=== PATIENT | male | born 1930 | race Caucasian/White ===

== ENCOUNTER → 2016-04-19 | Outpatient (REF) | payer MEDICARE, OTHER ==
[~2016-04-19] MED LIST: /MAGN40TA PO; /TERBI25T PO; ACET-654 PO; BEN1.4DI TOP; CALC1TAB PO; CALC1TAB12 PO; CALC600T7 PO; CALCTAB54 PO; CALCTAB73 PO; CIPR500T89 PO; COUM6TAB PO; CYAN1000 PO; EUCECRE3 TOP; FERR325T3 PO; FLAG500T PO; FLORA SINUS; FURO20TA2 PO; FURO40TA2 PO; GABA100C PO; GABA300C3 PO; GABA600T PO; GLUC500T53 PO; IRON; LASI40TA PO; LEVO500T PO; LISI-542 PO; LISI2.5T3 PO; LISI5TAB PO; MAGN400T5 PO; MELA1CAP PO; METO12TA PO; POTA1TAB14 PO; PRIN5TAB PO; SENN8.6T7 PO; TYLE325T5 PO; VITA-122 PO; VITA500019 PO; VITA500C24 PO; VITA500T53 PO; VITACAP9 PO; WARF10TA15 PO; [UNRECOGNIZED DRUG - CODE] OU; [UNRECOGNIZED DRUG - OTHER]; [UNRECOGNIZED DRUG - OTHER]; [UNRECOGNIZED DRUG - OTHER]; [UNRECOGNIZED DRUG - OTHER] PO; kcl
[2016-04-19 08:45] LABS: BASO # 0.1 K/mm3 (0.0-0.2); BASO % 0.7 % (0.0-1.0); EOS # 0.1 K/mm3 (0.0-0.50); EOS % 0.8 % (0.0-3.0); LARGE UNSTAINED CELL # 0.1 K/mm3 (0.0-0.4); LYMPH # 1.4 K/mm3 (1.5-4.5); MEAN CORPUSCULAR HEMOGLOBIN 27.3 pg (27.0-33.0); MEAN CORPUSCULAR HGB CONC 32.3 g/dl (32.0-36.5); MEAN CORPUSCULAR VOLUME 84.6 fl (80.0-96.0); MONO # 1.1 K/mm3 (0.0-0.8); MONO % 10.2 % (0.0-5.0); NEUTROPHILS # 7.8 K/mm3 (1.8-7.7); NEUTROPHILS % 75.4 % (36.0-66.0); PLATELET COUNT, AUTOMATED 238 k/mm3 (150-450); RED CELL DISTRIBUTION WIDTH 14.5 % (11.5-14.5); WHITE BLOOD COUNT 10.3 K/mm3 (4.0-10.0)
[2016-04-19 09:17] LABS: ANION GAP 6 MEQ/L (8-16); BLOOD UREA NITROGEN 20 MG/DL (7-18); CALCIUM LEVEL 8.9 MG/DL (8.8-10.2); CARBON DIOXIDE LEVEL 31 MEQ/L (21-32); CHLORIDE LEVEL 102 MEQ/L (98-107); CREATININE FOR GFR 1.18 MG/DL (0.70-1.30); GLOMERULAR FILTRATION RATE > 60.0 (>35); GLUCOSE, FASTING 90 MG/DL (83-110); MAGNESIUM LEVEL 2.2 MG/DL (1.8-2.4); SODIUM LEVEL 139 MEQ/L (136-145)
== END ==
LOC: SKLAB6 07:00
PROVIDERS: ATTEND Family Medicine
DX: I48.2 Chronic atrial fibrillation (principal); G30.1 Alzheimer's disease with late onset; I50.40 Unspecified combined systolic (congestive) and diastolic (congestive) heart failure; I48.0 Paroxysmal atrial fibrillation; I10 Essential (primary) hypertension; D50.9 Iron deficiency anemia, unspecified

== ENCOUNTER → 2016-10-04 | Outpatient (REF) | payer MEDICARE, OTHER ==
[~2016-10-04] MED LIST changes: +ACET1TAB17 PO; +ASPI81CH PO; +BENCRE3 TOP; +CIPR-249 PO; +DULC10SU2 PR; +ENEM1ENE4 PR; +FEVE650S3 PR; +GABA-282 PO; -GABA300C3 PO; +GUAI100S7 PO; +METO1TAB87 PO; +METO25TA4 PO; +MILKSUS PO; +NITR4TASL SL; +VITA1CAP40 PO
[2016-10-04 08:19] LABS: MEAN CORPUSCULAR HEMOGLOBIN 27.9 pg (27.0-33.0); MEAN CORPUSCULAR HGB CONC 33.2 g/dl (32.0-36.5); MEAN CORPUSCULAR VOLUME 84.1 fl (80.0-96.0); RED CELL DISTRIBUTION WIDTH 14.5 % (11.5-14.5); WHITE BLOOD COUNT 15.7 K/mm3 (4.0-10.0)
--- NOTE | 2016-10-04 15:28 | REP ---
Portable chest, single AP view, the patient upright, and 53 p.m., 10/04/2016. There is chronic effacement right costophrenic angle, similar appearance to the comparison PA and lateral views dated 06/24/[address] dated 06/05/2015. This is nonspecific and could represent chronic pleural effusion, chronic pleural thickening or chronic pleural adhesions. Remainder of the right lung is clear. Left lung is clear. Cardiac size appears enlarged, unchanged. The giovanna, mediastinum, and bony thorax are unchanged. Impression: No acute cardiopulmonary findings. Chronic cardiomegaly and chronic effacement right costophrenic angle. Signed by James Liu MD 10/04/2016 03:19 P
--- NOTE | 2016-10-05 13:46 | ECGEPIP ---
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
== END ==
LOC: SKLAB4 06:45
PROVIDERS: ATTEND Family Medicine
DX: R07.9 Chest pain, unspecified (principal); I51.7 Cardiomegaly; I48.91 Unspecified atrial fibrillation

== ENCOUNTER → 2016-10-05 | Outpatient (REF) | payer MEDICARE, OTHER ==
[2016-10-05 07:51] LABS: CREATININE FOR GFR 1.28 MG/DL (0.70-1.30); GLOMERULAR FILTRATION RATE 56.5 (>35)
== END ==
LOC: SKLAB4 06:36
PROVIDERS: ATTEND Family Medicine
DX: N28.9 Disorder of kidney and ureter, unspecified (principal); I50.9 Heart failure, unspecified

== ENCOUNTER → 2016-10-22 | Outpatient (REF) | payer MEDICARE, OTHER ==
[2016-10-22 08:07] LABS: MEAN CORPUSCULAR HEMOGLOBIN 27.5 pg (27.0-33.0); MEAN CORPUSCULAR HGB CONC 32.4 g/dl (32.0-36.5); MEAN CORPUSCULAR VOLUME 85.1 fl (80.0-96.0); RED CELL DISTRIBUTION WIDTH 14.4 % (11.5-14.5); WHITE BLOOD COUNT 5.3 K/mm3 (4.0-10.0)
[2016-10-22 08:41] LABS: ANION GAP 6 MEQ/L (8-16); BLOOD UREA NITROGEN 17 MG/DL (7-18); CALCIUM LEVEL 8.6 MG/DL (8.8-10.2); CARBON DIOXIDE LEVEL 30 MEQ/L (21-32); CHLORIDE LEVEL 104 MEQ/L (98-107); GLOMERULAR FILTRATION RATE > 60.0 (>35); GLUCOSE, FASTING 90 MG/DL (83-110); MAGNESIUM LEVEL 2.5 MG/DL (1.8-2.4); POTASSIUM SERUM 4.2 MEQ/L (3.5-5.1); SODIUM LEVEL 140 MEQ/L (136-145)
== END ==
LOC: SKLAB4 09:48
PROVIDERS: ATTEND Family Medicine
DX: I50.9 Heart failure, unspecified (principal)

== ENCOUNTER → 2017-01-03 | Outpatient (REF) | payer MEDICARE, OTHER ==
--- NOTE | 2017-01-03 14:20 | REP ---
CHEST, TWO VIEWS: HISTORY: Right rib pain. COMPARISON: 10/04/2016. Increased density is present in the right lower lobe consistent with an infiltrate. A right pleural effusion is present that has increased in size compared to the previous study. The left lung is clear. The cardiac silhouette is enlarged. The pulmonary vasculature is normal in appearance. The bony structure is intact. IMPRESSION: 1. Right lower lobe infiltrate. 2. Right pleural effusion increased in size compared to the previous study. 3. Cardiomegaly. Signed by Lauri Su MD 01/03/2017 02:22 P
== END ==
LOC: SKLAB4 12:15
PROVIDERS: ATTEND Family Medicine
DX: R07.89 Other chest pain (principal); I51.7 Cardiomegaly; J90 Pleural effusion, not elsewhere classified

== ENCOUNTER → 2017-01-07 | Outpatient (REF) | payer MEDICARE, OTHER ==
[2017-01-07 10:28] LABS: ALBUMIN 2.6 GM/DL (3.2-5.2); ANION GAP 6 MEQ/L (8-16); BLOOD UREA NITROGEN 14 MG/DL (7-18); CALCIUM LEVEL 8.6 MG/DL (8.8-10.2); CARBON DIOXIDE LEVEL 31 MEQ/L (21-32); CHLORIDE LEVEL 103 MEQ/L (98-107); CREATININE FOR GFR 1.16 MG/DL (0.70-1.30); GLOMERULAR FILTRATION RATE > 60.0 (>35); GLUCOSE, FASTING 144 MG/DL (83-110); PHOSPHORUS LEVEL 3.4 MG/DL (2.5-4.9); POTASSIUM SERUM 4.1 MEQ/L (3.5-5.1); SODIUM LEVEL 140 MEQ/L (136-145)
== END ==
LOC: SKLAB4 08:00
PROVIDERS: ATTEND Family Medicine
DX: N18.9 Chronic kidney disease, unspecified (principal)

== ENCOUNTER → 2017-01-09 | Outpatient (CLI) | payer MEDICARE ==
[~2017-01-09] MED LIST changes: +ISOVUE-370 76% 100ML VIAL (Q9967) As Ordered ONE
--- NOTE | 2017-01-10 08:35 | REP ---
CT of the chest with IV contrast: Comparison is a plain film study dated 01/03/[address] without IV contrast dated 06/05/2015. There is a large right loculated pleural effusion similar appearance to the 01/03/2017 plain film study but increased in size from 06/05/2015 CT. There are question of a to masses adjacent to the loculated pleural fluid pleural effusion in the right lower lobe versus compression atelectasis of the lung versus combination. These measure 4.6 cm and 6.0 cm. There is a spiculated nodule in the medial basilar segment right lower lobe measuring 2.6 cm. Left lung is clear. There is an enlarged paratracheal mediastinal node measuring up to 13 mm short axis. There are borderline enlarged mediastinal aorticopulmonic window nodes. There are large subcarinal nodes measuring up to 16 mm short axis. There are enlarged nodes in the posterior mediastinum adjacent to the descending thoracic aorta measuring up to 15 mm short axis. No The thoracic aorta is unremarkable except that the descending thoracic aorta is tortuous. Cardiac size is enlarged. There is calcified atheroma in the coronary arteries. In the upper abdomen. There are multiple hepatic cysts. These were present previously. There is some of the cyst [place] containing calcification. This is unchanged. There is cyst at the upper poles of each kidney. The adrenals are unremarkable. Pancreas and spleen are unremarkable. Impression: Loculated right pleural effusion. Masses versus compression atelectasis versus combination along the medial border of the loculated pleural effusion in the right lower lobe. This Spiculated nodule in the medial basilar segment right lower lobe. Mediastinal adenopathy as described. There is no hilar or axillary adenopathy. Cardiomegaly. Hepatic and renal cysts. Signed by James Liu MD 01/10/2017 08:26 A
== END ==
LOC: M RAD 18:02
PROVIDERS: ATTEND Nurse Practitioner Adult Health
DX: R91.8 Other nonspecific abnormal finding of lung field (principal); R59.0 Localized enlarged lymph nodes; I51.7 Cardiomegaly; K76.89 Other specified diseases of liver; N28.1 Cyst of kidney, acquired; J90 Pleural effusion, not elsewhere classified
CPT/HCPCS: 71260; Q9967

== ENCOUNTER 2017-01-17 10:48 | Inpatient (IN) | payer MEDICARE ==
[~2017-01-17] VITALS: Ht 180.3 cm; Wt 91.0 kg
[~2017-01-17 10:48] MED LIST changes: -ACET1TAB17 PO; -ASPI81CH PO; -BENCRE3 TOP; -DULC10SU2 PR; -ENEM1ENE4 PR; -FEVE650S3 PR; -GUAI100S7 PO; -ISOVUE-370 76% 100ML VIAL (Q9967) As Ordered ONE; -METO1TAB87 PO; -METO25TA4 PO; -MILKSUS PO; -NITR4TASL SL; -VITA1CAP40 PO
[2017-01-17] MEDS ORDERED: NITROGLYCERIN 0.4 MG SUBL TABLET SL PRN (14:15)
--- NOTE | 2017-01-17 14:15 | HPE ---
DATE OF ADMISSION: 01/17/2017 CHIEF COMPLAINT: Increased right pleural effusion. HISTORY OF PRESENT ILLNESS: This is an 86-year-old gentleman who resides at [facility]. At the end of December, his friends reported to the staff that he seemed to be more short of breath on exertion and they had noted a fall, but it was questionable whether he had any rib cage injuries. He had x-rays done, which showed an increase in a chronic pleural effusion at the right base.. He was subsequently referred to Dr. Rashid Alcazar after obtaining a CT of the chest, which suggested that there might be pulmonary masses adjacent to the effusion. Dr. Alcazar would like this gentleman admitted to the family medicine service given his chronic medical problems to facilitate drainage of his effusion. In April 2014, Mr. Frankel was admitted to the hospital with pneumonia, was treated and discharged, but he returned to the hospital because of persistent symptoms and found to have increased fluid in the right chest. At that time, Dr. Alcazar consulted on him. He had drainage by radiology of what was felt to be a parapneumonic effusion and the cytology on his pleural fluid was negative at that time. PAST HISTORY: He was hospitalized 4 years ago because of GI bleeding. 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 He has tricuspid regurgitation and hypertension. He has chronic atrial fibrillation but is not anticoagulated due to his previous GI bleeding. He is felt to have gastroparesis, as well as peripheral neuropathy. He has had cataract surgery. His current medication regimen calls for him to receive: - metoprolol 25 mg twice daily - glucosamine 500 mg three times day - gabapentin 300 mg three times a day - furosemide 40 mg daily - vitamin D 50,000 units monthly - aspirin 81 mg daily - nitroglycerin 0.4 mg sublingually every 5 minutes as needed for chest pain - Eucerin lotion daily to his skin ALLERGIES: He has no known allergies. FAMILY HISTORY: He had two siblings. His sister lives in [place] and he is not conversant with her health status. Other sibling is . 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 He has not smoked for many years. He has not had alcohol in many years. He has never , has no children. 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 Prior to his last hospitalization and placement at [facility], he used to be a patient of [facility] in [place]. He has been under my care since May 2015. REVIEW OF SYSTEMS: There is no fevers, chills, sweats, weight loss. No headache or dizziness. No visual problems. No chest pains or palpitations. He denies cough, shortness breath, phlegm production or hemoptysis. Denies nausea, vomiting, abdominal pain, diarrhea or constipation. He does have some issues with chewing as he has a number of broken and non restorable teeth. He denies back pains or leg pains. He has some chronic swelling in his feet. He tends to sit up in a chair most of the time, although he is capable of ambulating. He does have some stasis changes of the skin of his lower extremities. He denies paresthesias, focal weakness. Denies anxiety or depression. Notes that his memory is not what it should be. He tends to be very methodical. He collects newspaper clippings and other pieces of information that he thinks might be useful for him at some future time. He sorts objects that he has collected and methodically arranges them. PHYSICAL EXAMINATION: On examination, his weight is 207, blood pressure 138/90, pulse 90 and irregular , respirations 16. He is alert, oriented, pleasant and cooperative, not in any distress. He is partially oriented to time, partially oriented to place. He is oriented to person. He is normocephalic. Extraocular movements are full. Pupils are equal, round, regular and react to light. There is no facial weakness. Mouth shows a number of non restorable teeth. Tongue is midline. Speech is clear. Throat is unremarkable. There is no neck masses, tenderness or adenopathy. There are no carotid bruit bruits. His lungs are clear but there are diminished breath sounds in the right base. Heart is irregular without any murmur, click or gallop. Abdomen is soft, nontender without any masses, organomegaly. Bowel sounds are active. Back is nontender. He does have trace edema of his feet and stasis discoloration of his shins but no inflammation. Cranial nerves III-XII within normal limits. Quality Assurance Monitor Body are symmetric. Deep tendon reflexes are diminished. Babinski signs are negative. LABORATORY DATA: Most recent lab studies show a glucose of 144, BUN of 14, creatinine 1.16, sodium 140, potassium 4.1. Findings of his chest CT were noted above. The chest x-ray report from 01/03 showed right lower lobe infiltrate, right pleural effusion increased in size from 10/04 and cardiomegaly. 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 We will hold his aspirin. He is not on any Coumadin or novel anticoagulant medication. He tends to be a rather pleasant, charming gentleman who has not had any behavior issues. Prior to his procedure, I think his medication should be held, although I would continue him on his beta-pascale so that his heart rate doesn't become increased. He has a Medical Orders for Life Sustaining Treatment (MOLST) form that indicates no resuscitation, no intubation , hospitalization if necessary, antibiotics as necessary. BENNIE
[2017-01-17] MEDS ORDERED: LIDOCAINE 1% MDV 20ML VIAL As Ordered ONE (15:33)
[2017-01-17 16:45] VITALS: BP 131/87
--- NOTE | 2017-01-17 16:50 | REP ---
Chest x-ray: Two views. History: Status post thoracentesis, pigtail catheter placement. Comparison study 01/03/2017. Findings: A pigtail drainage catheter is noted in the right posterolateral pleural space. There is some air adjacent to the catheter. Pleural thickening is again seen. Findings are otherwise unchanged. Impression: Right pleural drainage catheter placement. Signed by Jose Luis Wells MD 01/17/2017 05:13 P
--- NOTE | 2017-01-17 17:07 | REP ---
ULTRASOUND GUIDED RIGHT THORACENTESIS WITH CATHETER PLACEMENT: The procedure was performed under the direct supervision of Dr. Wells. The risks and benefits of the procedure were explained and informed consent was obtained by the healthcare proxy. The right pleural effusion was localized using ultrasound guidance. The skin was prepped and draped in a sterile fashion. 1% lidocaine was used as a local anesthetic. Using ultrasound guidance a #10-[place] skater APDL catheter was inserted using trocar technique. 40 mL of low viscosity red-colored fluid was withdrawn and sent to the lab. The catheter was connected to a Pleur-evac. The catheter was affixed to the skin and a sterile dressing was applied. The patient tolerated the procedure well and there were no immediate complications. Reviewed by KIERA Crump 01/21/2017 04:58 PEdited and Signed by Jose Luis Wells MD 01/28/2017 07:53 A
[2017-01-17 17:16] LABS: BASO % 0.5 % (0.0-1.0); EOS # 0.2 10^3/uL (0.0-0.50); EOS % 3.7 % (0.0-3.0); IMMATURE GRANULOCYTE % 0.8 % (0-0); LYMPH # 0.8 10^3/uL (1.5-4.5); LYMPH % 12.2 % (24.0-44.0); MEAN CORPUSCULAR HEMOGLOBIN 24.9 pg (27.0-33.0); MEAN CORPUSCULAR HGB CONC 30.2 g/dl (32.0-36.5); MEAN CORPUSCULAR VOLUME 82.5 fl (80.0-96.0); MONO # 0.8 10^3/uL (0.0-0.8); MONO % 12.2 % (0.0-5.0); NEUTROPHILS # 4.7 10^3/uL (1.8-7.7); NEUTROPHILS % 70.6 % (36.0-66.0); PLATELET COUNT, AUTOMATED 322 10^3/uL (150-450); RED CELL DISTRIBUTION WIDTH 14.4 % (11.5-14.5); WHITE BLOOD COUNT 6.6 10^3/uL (4.0-10.0)
[2017-01-17 17:23] LABS: LDH, BODY FLUID 527 U/L (NOT ESTABLISHED)
[2017-01-17 17:30] LABS: INR 1.08
[2017-01-17 17:43] LABS: ALBUMIN 2.6 GM/DL (3.2-5.2); ALBUMIN/GLOBULIN RATIO 0.72 (1.00-1.93); ALBUMIN/GLOBULIN RATIO 0.74 (1.00-1.93); ALKALINE PHOSPHATASE 126 U/L (45-117); ALKALINE PHOSPHATASE 127 U/L (45-117); ALT/SGPT 11 U/L (12-78); ANION GAP 5 MEQ/L (8-16); ANION GAP 6 MEQ/L (8-16); AST/SGOT 16 U/L (15-37); AST/SGOT 18 U/L (15-37); BILIRUBIN,TOTAL 0.8 MG/DL (0.2-1.0); BLOOD UREA NITROGEN 15 MG/DL (7-18); BLOOD UREA NITROGEN 16 MG/DL (7-18); CALCIUM LEVEL 8.3 MG/DL (8.8-10.2); CALCIUM LEVEL 8.6 MG/DL (8.8-10.2); CARBON DIOXIDE LEVEL 30 MEQ/L (21-32); CARBON DIOXIDE LEVEL 31 MEQ/L (21-32); CHLORIDE LEVEL 103 MEQ/L (98-107); CHOLESTEROL LEVEL 96 MG/DL (< 200); CREATININE FOR GFR 1.11 MG/DL (0.70-1.30); CREATININE FOR GFR 1.13 MG/DL (0.70-1.30); GLOMERULAR FILTRATION RATE > 60.0 (>35); GLUCOSE, FASTING 102 MG/DL (83-110); PHOSPHORUS LEVEL 3.8 MG/DL (2.5-4.9); POTASSIUM SERUM 4.3 MEQ/L (3.5-5.1); POTASSIUM SERUM 4.4 MEQ/L (3.5-5.1); SODIUM LEVEL 139 MEQ/L (136-145); TOTAL PROTEIN 6.1 GM/DL (6.4-8.2); TOTAL PROTEIN 6.2 GM/DL (6.4-8.2); TRIGLYCERIDES LEVEL 98 MG/DL (<150)
[2017-01-17] MEDS ORDERED: FURO40TA2 PO (18:28)
[2017-01-17] MEDS ORDERED: BENCRE3 TOP (18:28)
[2017-01-17] MEDS ORDERED: ASPI81CH PO (18:28)
[2017-01-17] MEDS ORDERED: METO1TAB87 PO (18:28)
[2017-01-17] MEDS ORDERED: VITA1CAP40 PO (18:28)
[2017-01-17] MEDS ORDERED: METO25TA4 PO (18:28)
[2017-01-17] MEDS ORDERED: MILKSUS PO (18:28)
[2017-01-17] MEDS ORDERED: NITR4TASL SL (18:28)
[2017-01-17] MEDS ORDERED: DULC10SU2 PR (18:28)
[2017-01-17] MEDS ORDERED: GUAI100S7 PO (18:28)
[2017-01-17] MEDS ORDERED: FEVE650S3 PR (18:28)
[2017-01-17] MEDS ORDERED: ACET1TAB17 PO ×2 (18:28)
[2017-01-17] MEDS ORDERED: ENEM1ENE4 PR (18:28)
[2017-01-17] MEDS: ACETAMINOPHEN TAB 650MG DOSE (2X325MG) PO PRN (18:48)
[2017-01-17 20:00] VITALS: BP 144/68
[2017-01-17] MEDS: GABAPENTIN 300 MG CAP PO SCH (20:41)
[2017-01-17] MEDS: SENOKOT S TAB PO SCH (20:42)
[2017-01-17] MEDS: METOPROLOL TART 25 MG TABLET PO SCH (20:42)
[2017-01-17] MEDS: PERCOCET 5MG/325MG TAB PO PRN (20:43)
[2017-01-17 23:59] VITALS: BP 104/63
[2017-01-18] MEDS: PERCOCET 5MG/325MG TAB PO PRN ×4 (02:59→20:57)
[2017-01-18 04:00] VITALS: BP 144/88
[2017-01-18 08:00] VITALS: BP 130/66
[2017-01-18] MEDS: SENOKOT S TAB PO SCH ×2 (08:39→20:57)
[2017-01-18] MEDS: GABAPENTIN 300 MG CAP PO SCH ×3 (08:39→20:58)
[2017-01-18] MEDS: FUROSEMIDE 40 MG TAB PO SCH (08:39)
[2017-01-18] MEDS: METOPROLOL TART 25 MG TABLET PO SCH ×2 (08:39→20:57)
--- NOTE | 2017-01-18 10:05 | IPNPDOC ---
Subjective Date Seen The patient was seen on 01/18/17. Subjective Chief Complaint/HPI The patient is a 86-year-old male admitted with a reason for visit of Pleural Effusion. Events since last encounter Pig tail catheter placed yesterday by Dr. Alcazar. Small amount of drainage noted. Patient denies c/o. Constitutional: Denies: Chills, Fever, Night Sweats Pulmonary: Denies: Dyspnea, Cough Cardiovascular: Denies: Chest Pain, Palpitations, Orthopnea, Paroxysmal Noc. Dyspnea, Lt Headedness Gastrointestinal: Denies: Nausea, Vomiting, Abdominal Pain, Diarrhea, Constipation Objective Physical Examination General Exam: Positive: Alert, No Acute Distress Neck Exam: Positive: Supple, Negative: JVD, thyromegaly Chest Exam: Positive: Diminished (RLL) Heart Exam: Positive: Rate Normal, Regular Rhythm, Normal S1, Normal S2, Negative: Murmurs, Rubs Extremity Exam: Positive: Normal pulses, Negative: Clubbing, Cyanosis, Edema Assessment /Plan Problems (1) Pleural effusion Status: Acute Problem Specific Plan: Consult Specialist, Monitor Clinically Problem Text: Dr. Alcazar managing. Monitor. CXR this am. labs ordered for today. (2) HTN (hypertension) Status: Chronic Response to Treatment: Stable Problem Specific Plan: Monitor Clinically (3) Gastroparesis Status: Chronic Response to Treatment: Stable Problem Specific Plan: Monitor Clinically (4) Systolic CHF Status: Chronic Response to Treatment: Stable Problem Specific Plan: Monitor Clinically (5) Afib Status: Chronic Problem Text: not anticoagulated due to hx of GI bleed. (6) Dementia Status: Chronic Plan/VTE VTE Prophylaxis Ordered?: No VTE Exclusion Pharmacological: Bleeding Risk (hx of GI bleed) VS, I&O, 24H, Fishbone Vital Signs/I&O Vital Signs Date Time Temp Pulse Resp B/P (MAP) Pulse Ox O2 Delivery O2 Flow Rate FiO2 01/18/17 08:39 88 130/66 01/18/17 08:39 18 01/18/17 08:00 97.6 97 Room Air I&O- Last 24 Hours up to 6 AM 01/19/17 06:00 Output Total 100 ml Balance -100 ml Laboratory Data 24H LABS Laboratory Tests 2 01/17/17 16:57: Immature Granulocyte % (Auto) 0.8H, White Blood Count 6.6, Red Blood Count 3.77L , Hemoglobin 9.4L, Hematocrit 31.1L, Mean Corpuscular Volume 82.5, Mean Corpuscular Hemoglobin 24.9L, Mean Corpuscular Hemoglobin Concent 30.2L, Red Cell Distribution Width 14.4, Platelet Count 322, Neutrophils (%) (Auto) 70.6H, Lymphocytes (%) (Auto) 12.2L, Monocytes (%) (Auto) 12.2H, Eosinophils (%) (Auto ) 3.7H, Basophils (%) (Auto) 0.5, Neutrophils # (Auto) 4.7, Lymphocytes # (Auto ) 0.8L, Monocytes # (Auto) 0.8, Eosinophils # (Auto) 0.2, Basophils # (Auto) 0.0 , Immature Granulocyte # (Auto) 0.1H, Nucleated Red Blood Cells % (auto) 0.0, Prothrombin Time 14.2, Prothromb Time International Ratio 1.08, Anion Gap 6L, Glomerular Filtration Rate > 60.0, Blood Urea Nitrogen 15, Creatinine 1.13, Sodium Level 139, Potassium Level 4.3, Chloride Level 103, Carbon Dioxide Level 30, Calcium Level 8.6L, Aspartate Amino Transf (AST/SGOT) 16, Alanine Aminotransferase (ALT/SGPT) 11L, Alkaline Phosphatase 127H, Total Bilirubin 0.8 , Total Protein 6.2L, Albumin 2.6L, Phosphorus Level 3.8, Lactate Dehydrogenase 205, Total Creatine Kinase 133, Triglycerides Level 98, Cholesterol Level 96, Albumin/Globulin Ratio 0.72L CBC/BMP Laboratory Tests 01/17/17 16:57 Red Blood Count 3.77 L, Mean Corpuscular Volume 82.5, Mean Corpuscular Hemoglobin 24.9 L, Mean Corpuscular Hemoglobin Concent 30.2 L, Red Cell Distribution Width 14.4, Neutrophils (%) (Auto) 70.6 H, Lymphocytes (%) (Auto) 12.2 L, Monocytes (%) (Auto) 12.2 H, Eosinophils (%) (Auto) 3.7 H, Basophils (% ) (Auto) 0.5, Neutrophils # (Auto) 4.7, Lymphocytes # (Auto) 0.8 L, Monocytes # (Auto) 0.8, Eosinophils # (Auto) 0.2, Basophils # (Auto) 0.0, Calcium Level 8.6 L, Aspartate Amino Transf (AST/SGOT) 16, Alanine Aminotransferase (ALT/SGPT) 11 L, Alkaline Phosphatase 127 H, Total Bilirubin 0.8, Total Protein 6.2 L, Albumin 2.6 L, Phosphorus Level 3.8, Lactate Dehydrogenase 205, Total Creatine Kinase 133, Triglycerides Level 98, Cholesterol Level 96 Microbiology Microbiology 01/17/17 Acid Fast Stain, Received Pending 01/17/17 Mycobacterial Culture, Received Pending 01/17/17 Fungal Smear, Received Pending 01/17/17 Fungal Culture, Received Pending 01/17/17 Gram Stain - Final, Resulted 01/17/17 Body Fluid Culture, Resulted Pending 01/17/17 Anaerobic Culture, Resulted Pending Amber Clifford [facility] Jan 18, 2017 10:05
--- NOTE | 2017-01-18 10:29 | REP ---
CHEST, TWO VIEWS: HISTORY: Pleural effusion. COMPARISON: 01/17/2017. Increased density is present in the right lower lobe consistent with atelectasis or infiltrate that has increased compared to the previous study. A right pleural effusion is present unchanged compared to the previous study. The left lung is clear. The cardiac silhouette is enlarged. The pulmonary vasculature is normal in appearance. A catheter is present in the right hemithorax. There is no pneumothorax. IMPRESSION: 1. Right lower lobe atelectasis or infiltrate increased compared to the previous study. 2. Right pleural effusion unchanged compared to the previous study. A catheter is present in the right hemithorax. Signed by Lauri Su MD 01/18/2017 10:33 A
[2017-01-18 11:00] LABS: BASO % 0.3 % (0.0-1.0); EOS # 0.2 10^3/uL (0.0-0.50); EOS % 2.6 % (0.0-3.0); IMMATURE GRANULOCYTE % 0.6 % (0-0); LYMPH # 0.7 10^3/uL (1.5-4.5); LYMPH % 10.5 % (24.0-44.0); MEAN CORPUSCULAR HEMOGLOBIN 25.1 pg (27.0-33.0); MEAN CORPUSCULAR HGB CONC 30.7 g/dl (32.0-36.5); MEAN CORPUSCULAR VOLUME 81.8 fl (80.0-96.0); MONO # 0.7 10^3/uL (0.0-0.8); MONO % 10.2 % (0.0-5.0); NEUTROPHILS # 5.2 10^3/uL (1.8-7.7); NEUTROPHILS % 75.8 % (36.0-66.0); PLATELET COUNT, AUTOMATED 309 10^3/uL (150-450); RED CELL DISTRIBUTION WIDTH 14.4 % (11.5-14.5); WHITE BLOOD COUNT 6.9 10^3/uL (4.0-10.0)
[2017-01-18] MEDS ORDERED: ALTEPLASE 2 MG/2 ML VIAL (J2997 PER 1MG) XX ONE (11:30)
[2017-01-18 11:49] LABS: ALBUMIN 2.6 GM/DL (3.2-5.2); ALBUMIN/GLOBULIN RATIO 0.72 (1.00-1.93); ALKALINE PHOSPHATASE 128 U/L (45-117); ALT/SGPT 11 U/L (12-78); ANION GAP 5 MEQ/L (8-16); AST/SGOT 13 U/L (15-37); BLOOD UREA NITROGEN 15 MG/DL (7-18); CALCIUM LEVEL 8.4 MG/DL (8.8-10.2); CARBON DIOXIDE LEVEL 31 MEQ/L (21-32); CHLORIDE LEVEL 102 MEQ/L (98-107); CREATININE FOR GFR 1.12 MG/DL (0.70-1.30); GLOMERULAR FILTRATION RATE > 60.0 (>35); GLUCOSE, FASTING 141 MG/DL (83-110); POTASSIUM SERUM 4.5 MEQ/L (3.5-5.1); SODIUM LEVEL 138 MEQ/L (136-145); TOTAL PROTEIN 6.2 GM/DL (6.4-8.2)
[2017-01-18 12:00] VITALS: BP 120/63
--- NOTE | 2017-01-18 14:13 | IPN ---
DATE: 01/18/2017 Mr. Frankel had a pigtail catheter placed yesterday with only 40 mL coming out. He still has a significant pleural effusion. I am, therefore, going to undertake a tissue plasminogen activator (tPA) pleurolysis. His vital signs show a maximum temperature (Tmax) of 98.3 with a heart rate that ranges between 88 and 72 in atrial fibrillation with a respiratory rate of 18-20 without the use of accessory muscles. He was 97% saturated on room air. His blood pressures ranging between 130/66 to 144/88. His intake and output for the past 24 hours were recorded at 420 in and 570 out for a negativity of 150 mL. He has put 45 mL total out the pigtail catheter. Weight today is 93.1 kg compared to 92.5 kg yesterday. PHYSICAL EXAMINATION: He has decreased breath sounds in the right lower hemithorax and a dull percussion note. I hear no wheezes, rhonchi, or rales, however. Percussion notes are full to the diaphragm on the left side. CARDIAC EXAM: Without murmurs, clicks, gallops, rubs. I cannot feel his point of maximum impulse (PMI). S1, S2 are normal. ABDOMEN: Is soft, nontender. Bowel sounds are positive. There is no hepatomegaly. No costovertebral angle (CVA) tenderness. EXTREMITIES: Show no pretibial edema. No calf tenderness. No differential swelling in the upper extremities. SKIN: Is warm, dry, and perfused without cyanosis or mottling, including that of the nailbeds and knees. NECK: Is supple. There is no jugular venous distention. No subcutaneous emphysema. Trachea is midline. Mouth shows his mucous membranes to be pink and moist. Lips and commissures without lesions. There is no thrush. Eyes show his pupils to be equal and reactive. Extraocular motions intact. Sclerae anicteric. NEUROLOGICAL: Shows II through XII intact along with gross motor and gross sensation intact. Gait is not tested. PSYCHIATRIC: Shows him to be pleasantly confused but quite cooperative. His white count today is 6.0 with hemoglobin and hematocrit of 9.4 and 30.6. Platelet count is 309. His differential shows 35% neutrophils, 10% lymphocytes, 10% monocytes. There are no immature forms. No toxic granulations. His chemistries are still pending. Fluid analysis yesterday showed the pleural fluid to have a pH of 7.47 with a glucose of 57, a corresponding glucose of 102 in the serum. The LDH was 527 with a corresponding LDH pf 205 in the serum. There is no cell count recorded. This looks to be an exudative hypoglycemic effusion. Microbiology did not show any organisms on gram stain. Pathology is still pending. His chest x-ray today shows a pleural effusion on the right side looking linear and loculated. The pigtail catheter is in good place. It is notable that I do not see a lot of opacity posteriorly on the lateral chest x-ray. On the AP x-ray, there is considerable opacity in the right lower hemithorax in a triangular and linear fashion. IMPRESSION: 1. Recurrent pleural effusion, unknown origin, exudative and hypoglycemic, possibly parapneumonic. 2. Systolic heart failure with ejection fraction of 45%. 3. Severe tricuspid regurgitation. 4. Right and left atrial enlargement. 5. Atrial fibrillation. 6. Hypertension. 7. Gastroparesis. PLAN AND DISCUSSION: I will undertake a tissue plasminogen activator (tPA) pleurolysis on him today. I am not sure how much more we are going to get out. Tomorrow, I will undertake a CT of his chest to see how successful we have been.
[2017-01-18 16:00] VITALS: BP 115/66
--- NOTE | 2017-01-18 20:02 | RO ---
DATE OF PROCEDURE: 01/18/2017 PREPROCEDURE DIAGNOSES: Loculated pleural effusion. POSTPROCEDURE DIAGNOSES: Loculated pleural effusion. OPERATIVE PROCEDURE: TPA pleurolysis procedure. SURGEON: Rashid Alcazar MD SANDBLAST OR SHOTBLAST EQUIPMENT TENDER: ANESTHESIA: DESCRIPTION OF PROCEDURE: The patient's chest tube catheter was prepped and draped in the usual sterile fashion. 6 mg of TPA and 50 mL of normal saline was injected into the pleural space. Catheter was clamped and the patient was turned from side to side then instructed to sit in a chair. Chest catheter will be unclamped in 4 hours and returned to suction.
[2017-01-18 20:20] VITALS: BP 119/64
[2017-01-19 00:20] VITALS: BP 101/64
[2017-01-19 05:22] VITALS: BP 119/74
[2017-01-19] MEDS: PERCOCET 5MG/325MG TAB PO PRN (06:14)
[2017-01-19 08:00] VITALS: BP 104/57
[2017-01-19] MEDS: SENOKOT S TAB PO SCH ×2 (10:09→20:07)
[2017-01-19] MEDS: FUROSEMIDE 40 MG TAB PO SCH (10:09)
[2017-01-19] MEDS: GABAPENTIN 300 MG CAP PO SCH ×3 (10:11→20:07)
[2017-01-19] MEDS: METOPROLOL TART 25 MG TABLET PO SCH ×2 (10:11→20:07)
--- NOTE | 2017-01-19 10:15 | REP ---
Chest x-ray: Two views. History: Pleural effusion. Comparison study: January 18, 2017. Findings: The right posterolateral pigtail catheter remains in place. There is some air and pleural fluid adjacent. Soft tissue emphysema is seen outside the rib cage at this level. No new infiltrate is seen. Left lung remains clear. Signed by Jose Luis Wells MD 01/19/2017 02:15 P
[2017-01-19 12:00] VITALS: BP 119/74
[2017-01-19 12:33] LABS: MEAN CORPUSCULAR HGB CONC 30.5 g/dl (32.0-36.5); RED CELL DISTRIBUTION WIDTH 14.6 % (11.5-14.5); WHITE BLOOD COUNT 9.4 10^3/uL (4.0-10.0)
--- NOTE | 2017-01-19 12:46 | REP ---
CT chest without contrast: History: Pleural effusion after TPA. Comparison study January 09, 2017. Findings: A right percutaneously placed pigtail catheter is seen in the right posterolateral pleural space with some surrounding pleural air. There is some soft tissue emphysema adjacent to this tube insertion site. There is loculated pleural fluid anterior and superior to the tube insertion however this contains visible and fairly extensive septations versus nodularity. There is visceral and parietal pleural thickening which is considerable. There are atelectatic changes in the remaining right lung. There is a fracture of the lateral aspect of the right 9th rib. Impression: Multiple septations seen in the remaining pleural fluid process. Loculations. Visceral and parietal pleural thickening. Right-sided lateral 9th rib fracture. Signed by Jose Luis Wells MD 01/19/2017 02:19 P
[2017-01-19 13:15] LABS: ANION GAP 6 MEQ/L (8-16); BLOOD UREA NITROGEN 18 MG/DL (7-18); CALCIUM LEVEL 8.5 MG/DL (8.8-10.2); CARBON DIOXIDE LEVEL 32 MEQ/L (21-32); CHLORIDE LEVEL 98 MEQ/L (98-107); CREATININE FOR GFR 1.18 MG/DL (0.70-1.30); GLOMERULAR FILTRATION RATE > 60.0 (>35); GLUCOSE, FASTING 123 MG/DL (83-110); POTASSIUM SERUM 4.4 MEQ/L (3.5-5.1); SODIUM LEVEL 136 MEQ/L (136-145)
[2017-01-19] MEDS ORDERED: MOM 30ML SUSPENSION UDC PO PRN (14:15)
--- NOTE | 2017-01-19 14:43 | IPN ---
DATE: 01/19/2017 Mr. Frankel is sitting up comfortably in a chair. He is not complaining of pain nor is he complaining of shortness of breath. His vital signs show a maximum temperature (Tmax) of 99.6 with a heart rate that ranges between 78 and 100 in atrial fibrillation with a respiratory rate of 18 to 17 without the use of accessory muscles and who is 94% to 100% saturated on room air and whose blood pressure is ranging between 104/57 to 119/74. His intake and output for the past 24 hours has been recorded as 1240 in and 1370 out for a negativity of 130 mL. He has put 80 mL from the chest tube catheter and 50 mL this morning. His weight today is 92.4 kg compared to 93.1 kg yesterday. On physical examination, his lungs show decreased breath sounds in the right hemithorax. I hear no wheezes, rhonchi or rales however. Percussion note is dull towards the base of the left hemithorax. Right lung shows percussion note is full to the diaphragm. I do not detect wheezes, rhonchi or rales. Cardiac exam shows an irregular rate and rhythm. I cannot feel his point of maximum impulse (PMI). S1, S2 are normal. There are no murmurs, clicks, gallops or rubs. Abdomen is soft, nontender, but tympanitic and slightly distended. Bowel sounds are positive. There is no hepatomegaly. No costovertebral angle (CVA) tenderness. Extremities show trace pretibial edema. No calf tenderness. No differential swelling in the upper extremities. Skin is warm, dry, and perfused without cyanosis or mottling, including that of the nail beds and knees. Neck is supple. There is no jugular venous distention. No subcutaneous emphysema. Trachea is midline. Mouth shows his mucous membranes to be pink and moist. Lips and commissures without lesions. There is no thrush. Eyes show his pupils to be equal and reactive. Extraocular motions intact. Sclerae anicteric. Neurologic shows II through XII intact along with gross motor and gross sensation intact. Gait is not tested. Psychiatric shows him to be pleasantly confused and talkative. His white count today is 9.4 with hemoglobin and hematocrit of 10.7 and 35.1, slightly up from yesterdays of 9.4 and 30.6. Platelet count is 363. Chemistries today show normal electrolytes with a BUN and creatinine of 18 and 1.18, a glucose of 123 and a calcium of 8.5. I discussed his pleural fluid yesterday, looking exudative and hypoglycemic. It was however clotted and therefore cell count was not undertaken. His chest x-ray today still shows an opacity on the right lateral hemithorax. Compared to yesterday, there seems to be more lucency at the right costophrenic angle. I see no other infiltrates. He did undergo a tPA pleurolysis yesterday. I therefore obtained a CT scan of his chest without contrast today. It shows the catheter to be in good position. The lower portion of the chest has been drained; however, there is still an organized loculation on the lateral chest wall. There is underlying compression. The previously noted masses are still there, but again looked to be consolidated compressed lung rather than malignant masses. His cardiac chambers are massively dilated, particularly the right atrium. It is notable I do not hear a murmur of tricuspid regurgitation. There is a very small sliver of a left pleural effusion. IMPRESSION: 1. Loculated pleural effusion, right side, partially drained. 2. Systolic heart failure with ejection fraction of 45%. 3. Severe tricuspid regurgitation. 4. Right and left atrial enlargement. 5. Atrial fibrillation. 6. Hypertension. 7. Gastroparesis. PLAN AND DISCUSSION: The chest catheter is draining very little. I am therefore going to remove it. I think that we should be content with him continuing his loculated effusion. It would not be unreasonable to follow this along with periodic chest x-rays. It looks as though there is some organization within the remaining pleural effusion. If it does get larger, I will once again have x-ray place a pleural catheter and try another tPA pleurolysis. For the time being though he is asymptomatic and I will let it be.
--- NOTE | 2017-01-19 15:38 | IPN ---
DATE: 01/19/2017 SUBJECTIVE: Mr. Frankel is seen today in the progressive care unit (PCU). At this time his chest tube has been removed. Cytology from the pleural fluid just shows blood and blood elements. No malignant cells. He is not complaining of any chest pains or palpitations. He has a little cough now and then, no shortness of breath, no abdominal pains. No leg pain, not having any swelling. He is currently sitting up in bed. He is making geometric drawings and coloring them in. He is currently getting furosemide, Senokot-S, gabapentin, metoprolol, and as-needed medication for pain, I recently put in an order for milk of magnesia as he has not moved his bowels since he has been here. OBJECTIVE: On examination, his temperature is 99.6, blood pressure of 119.74, pulse 100 and irregular, respirations 18. He is alert, pleasant and cooperative, not in any distress. His eyes are clear, There are no neck masses, tenderness or adenopathy. No carotid bruits. His jugulars I think are a little bit full. He has diminished breath sounds at the right base. No rales, wheezes or rhonchi. Heart is irregular without any murmur, click or gallop. Abdomen is soft and nontender without any masses or organomegaly. There is no edema. LABORATORY DATA: His white count is 9400. Hemoglobin 10.7 which is better than yesterday. Glucose was 123, BUN 18, creatinine 1.8. IMAGING: We reviewed his chest x-ray. ASSESSMENT: 1. Loculated pleural effusion on the right. 2. Systolic heart failure controlled. 3. Tricuspid regurgitation stable. 4. Atrial fibrillation controlled. 5. Hypertension controlled. 6. Gastroparesis, stable. 7. Dementia. PLAN: Resident will continue on his current medication regimen. No changes are made today. Certainly does not appear to have any cause for the increase in or recurrence of the pleural fusion. I am assuming that the patient will return back to the longterm tomorrow or the next day depending upon the availability of the staff and longterm to do his readmission. BENNIE
[2017-01-19 16:00] VITALS: BP 129/74
[2017-01-19 20:00] VITALS: BP 128/71
[2017-01-20 00:20] VITALS: BP 121/67
[2017-01-20] MEDS: PERCOCET 5MG/325MG TAB PO PRN (00:37)
[2017-01-20 04:00] VITALS: BP 130/74
[2017-01-20 08:00] VITALS: BP 112/70
[2017-01-20] MEDS: METOPROLOL TART 25 MG TABLET PO SCH ×2 (08:56→21:55)
[2017-01-20] MEDS: FUROSEMIDE 40 MG TAB PO SCH (08:56)
[2017-01-20] MEDS: SENOKOT S TAB PO SCH ×2 (08:56→22:02)
[2017-01-20] MEDS: GABAPENTIN 300 MG CAP PO SCH ×3 (08:56→21:55)
[2017-01-20] MEDS: ACETAMINOPHEN TAB 650MG DOSE (2X325MG) PO PRN (09:15)
--- NOTE | 2017-01-20 11:30 | REP ---
Chest x-ray: Two views. History: Pleural effusion. Comparison study: January 19, 2017. Findings: The previously noted pleural drainage catheter has been removed. A small quantity of air and fluid remain in the right pleural space. Pleural thickening is again noted unchanged. Mild cardiomegaly is observed. The left lung remains clear. Signed by Jose Luis Wells MD 01/20/2017 09:38 A
[2017-01-20 12:00] VITALS: BP 107/58
--- NOTE | 2017-01-20 15:32 | DSES ---
DATE OF ADMISSION: 01/17/2017 DATE OF DISCHARGE: 01/20/2017 Mr. Frankel is an 86-year-old gentleman found recently to have increase in a chronic right pleural effusion which had first been noted several years ago and felt to be a parapneumonic effusion. However, he had recently been short of breath. He had a CT that was worrisome for some nodularity of the lung adjacent to the effusion. He was seen by Dr. Rashid Alcazar who recommended a hospital admission for chest tube insertion for both diagnostic and therapeutic reasons. He had a past history of atrial fibrillation, gastrointestinal (GI) bleeding, dementia, pneumonia 20 months ago. Medications prior to admission included metoprolol, glucosamine, gabapentin, furosemide, vitamin D, aspirin, as needed nitroglycerin, Eucerin lotion. His examination showed blood pressure to be 138/90, pulse 90 and irregular, respirations 16. His weight was 207. He was alert, partially oriented to time, partially oriented to place. Not in any distress. He had a number of non-restorable teeth. Tongue was midline. Speech was clear. Lungs showed diminished breath sounds at the right base. Heart was irregular without any murmur, click or gallop. He had trace edema of his feet and stasis discoloration in his shins. Laboratory data showed hemoglobin initially 9.4, subsequently 10.7, and white count ranged between 2791-7213, respectively. His BUN ranged from 15-18. Creatinine ranged from 1.11 to 1.18. Potassium ranged from 4.3 to 4.5. Glucose ranged from 102-123. Albumin was 2.6. Pleural fluid chemistries showed glucose of 57, protein of 3, albumin 1.2, LDH 527, amylase 25. Cholesterol less than 50, triglycerides 40. Appearance was red and clotted. Cultures were negative. Pathology showed mainly blood and blood elements negative for malignancy. Imaging showed multiple chest x-rays showing right lower lobe atelectasis and infiltrate. Chest CT showed multiple septations in the pleural fluid, loculations, visceral and parietal pleural thickening, it read a right-sided lateral left rib fracture which is not apparent on his plain films. Atelectatic changes were seen in the residual right lung. The patient was admitted to the hospital on the family medicine service. He was kept on his usual medications including furosemide, Senokot-S, gabapentin, metoprolol. He was afforded oxycodone for pain. He did not have any fevers or require any antibiotics. He did have a pigtail catheter placed that was subsequently removed, it really did not drain too much after its initial output. He underwent TPA irrigation of the effusion as well. Catheter was removed on 01/19/2017, by Dr. Alcazar, he tolerated this well. No pneumothorax was identified. He had a followup x-ray that was negative. 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 The areas that had previously been identified as possible tumor were felt by the thoracic surgeon to be consolidated lung tissue. From the point of view of the homemaking rehabilitation consultant, he was ready to return to the senior living. He was seen on the morning of 01/20/2017, at which time his temperature was 99.1, pulse was 99, respirations 18, blood pressure was 112/70, oxygen saturation on room air 94%. He was alert, pleasant, and cooperative, not in any distress. His lungs showed diminished breath sounds at the right base. Heart had an irregular rhythm without any murmur, click or gallop. Abdomen was soft and nontender. There was trace edema only on the tops of his feet. He is to resume his previous medication regimen at the senior living which includes furosemide 40 mg daily, Senokot-S twice a day, gabapentin 300 mg three times a day, metoprolol 25 mg twice a day as needed medications for pain and for chest pain, as needed medications for skin care. At the time of this dictation it was unclear whether the senior living would be able to take him back that day due to some issues regarding his need to be re-registered in their data base. He will be followed by me at [facility] and Dr. Alcazar recommended a followup chest x-ray in 10 days with report to be forwarded to him. [facility]USPasc[facility]
[2017-01-20 16:00] VITALS: BP 148/72
[2017-01-20 20:02] VITALS: BP 129/72
[2017-01-21 00:37] VITALS: BP 119/58
[2017-01-21 04:54] VITALS: BP 113/68
[2017-01-21 08:00] VITALS: BP 120/57
[2017-01-21 08:59] VITALS: BP 120/57
[2017-01-21] MEDS: METOPROLOL TART 25 MG TABLET PO SCH (08:59)
[2017-01-21] MEDS: SENOKOT S TAB PO SCH (08:59)
[2017-01-21] MEDS: FUROSEMIDE 40 MG TAB PO SCH (09:00)
[2017-01-21] MEDS: GABAPENTIN 300 MG CAP PO SCH (09:00)
--- NOTE | 2017-01-21 10:44 | DSES ---
DATE OF ADMISSION: 01/18/2017 DATE OF DISCHARGE: 01/21/2017 ADDENDUM: 01/21/2017 Patient has had no changes to his medical hospital course since the discharge summary by Dr. Oates was dictated. His discharge diagnoses include: 1. Loculated pleural effusion on the right. 2. Systolic congestive heart failure. 3. Atrial fibrillation. 4. Hypertension. 5. Gastroparesis. 6. Dementia. His discharge medications include: - acetaminophen 650 mg by mouth three times a day as well as every 4 hours as needed by mouth or per rectum - aspirin 81 mg daily - Bengay topically every 2 hours as needed - Dulcolax 10 mg per rectum daily as needed for constipation - enema daily as needed for constipation - vitamin D 50,000 units weekly - furosemide 40 mg daily - gabapentin 300 mg three times a day - glucosamine 500 mg three times a day - guaifenesin 100 mg per 5 mL, 20 mL every 6 hours as needed for cough - metoprolol 25 mg by mouth twice a day, 12.5 mg twice a day as needed for heart rate great than 120 - Milk of Magnesia 30 mL by mouth daily as needed for constipation - nitroglycerin 0.4 mg sublingually as needed for chest pain Discharge plan will be to followup with Dr. Oates. Activity should be as tolerated. Diet should be no added salt. edited: 01/22/2017 1401 tkf MTDD
--- NOTE | 2017-01-21 11:07 | REP ---
CHEST, TWO VIEWS: Two views of the chest are performed and compared a prior study of 01/20/2017. Right pleural fluid collection is again seen unchanged with a small amount of loculated pleural air inferiorly. The left lung remains clear. The heart is enlarged and the mediastinal silhouette is unchanged. IMPRESSION: Stable exam. Signed by James Johnson MD 01/22/2017 07:50 P
== END 2017-01-21 12:13 | DRG 187 ==
LOC: M PCU 16:30 → OBSVTOIN 01-18 11:44
PROVIDERS: ADMIT Family Medicine; ATTEND Family Medicine
PROC: 0W9930Z Drainage of Right Pleural Cavity with Drainage Device, Percutaneous Approach (ICD-10-PCS; principal; 2017-01-17)
PROC: 3E0L3GC Introduction of Other Therapeutic Substance into Pleural Cavity, Percutaneous Approach (ICD-10-PCS; 2017-01-18)
DX: J90 Pleural effusion, not elsewhere classified (principal); I50.22 Chronic systolic (congestive) heart failure; F03.90 Unspecified dementia, unspecified severity, without behavioral disturbance, psychotic disturbance, mood disturbance, and anxiety; I11.0 Hypertensive heart disease with heart failure; K31.84 Gastroparesis; I48.2 Chronic atrial fibrillation; G62.9 Polyneuropathy, unspecified; Z98.49 Cataract extraction status, unspecified eye; Z79.82 Long term (current) use of aspirin; Z79.899 Other long term (current) drug therapy

== ENCOUNTER → 2017-04-22 | Outpatient (REF) | payer MEDICARE ==
[2017-04-22 10:12] LABS: HEMATOCRIT 35.7 % (42.0-52.0); HEMOGLOBIN 10.5 g/dl (14.0-18.0); MEAN CORPUSCULAR HEMOGLOBIN 23.6 pg (27.0-33.0); MEAN CORPUSCULAR HGB CONC 29.4 g/dl (32.0-36.5); MEAN CORPUSCULAR VOLUME 80.2 fl (80.0-96.0); PLATELET COUNT, AUTOMATED 300 10^3/uL (150-450); RED BLOOD COUNT 4.45 10^6/uL (4.30-6.10); RED CELL DISTRIBUTION WIDTH 17.4 % (11.5-14.5); WHITE BLOOD COUNT 6.9 10^3/uL (4.0-10.0)
[2017-04-22 10:41] LABS: ANION GAP 8 MEQ/L (8-16); BLOOD UREA NITROGEN 13 MG/DL (7-18); CALCIUM LEVEL 8.7 MG/DL (8.8-10.2); CARBON DIOXIDE LEVEL 30 MEQ/L (21-32); CHLORIDE LEVEL 103 MEQ/L (98-107); CREATININE FOR GFR 1.13 MG/DL (0.70-1.30); GLOMERULAR FILTRATION RATE > 60.0 (>35); GLUCOSE, FASTING 115 MG/DL (83-110); POTASSIUM SERUM 4.2 MEQ/L (3.5-5.1); SODIUM LEVEL 141 MEQ/L (136-145)
== END ==
LOC: SKLAB4 12:18
DX: N18.9 Chronic kidney disease, unspecified (principal)
CPT/HCPCS: 36415

== ENCOUNTER → 2017-09-17 | Outpatient (REF) | payer MEDICARE, MEDICAID, OTHER ==
[2017-09-17 13:16] LABS: HEMATOCRIT 37.8 % (42.0-52.0); HEMOGLOBIN 11.5 g/dl (13.5-17.5); MEAN CORPUSCULAR HEMOGLOBIN 26.4 pg (27.0-33.0); MEAN CORPUSCULAR HGB CONC 30.4 g/dl (32.0-36.5); MEAN CORPUSCULAR VOLUME 86.9 fl (80.0-96.0); PLATELET COUNT, AUTOMATED 285 10^3/uL (150-450); RED BLOOD COUNT 4.35 10^6/uL (4.30-6.10); RED CELL DISTRIBUTION WIDTH 14.9 % (11.5-14.5); WHITE BLOOD COUNT 6.4 10^3/uL (4.0-10.0)
[2017-09-17 13:41] LABS: ALBUMIN 2.9 GM/DL (3.2-5.2); ALBUMIN/GLOBULIN RATIO 0.81 (1.00-1.93); ALKALINE PHOSPHATASE 121 U/L (45-117); ALT/SGPT 13 U/L (12-78); ANION GAP 6 MEQ/L (8-16); AST/SGOT 17 U/L (7-37); BILIRUBIN,TOTAL 0.8 MG/DL (0.2-1.0); BLOOD UREA NITROGEN 13 MG/DL (7-18); CALCIUM LEVEL 8.6 MG/DL (8.8-10.2); CARBON DIOXIDE LEVEL 29 MEQ/L (21-32); CHLORIDE LEVEL 107 MEQ/L (98-107); CREATININE FOR GFR 1.13 MG/DL (0.70-1.30); GLOMERULAR FILTRATION RATE > 60.0 (>35); GLUCOSE, FASTING 125 MG/DL (70-100); POTASSIUM SERUM 4.5 MEQ/L (3.5-5.1); SODIUM LEVEL 142 MEQ/L (136-145); TOTAL PROTEIN 6.5 GM/DL (6.4-8.2)
== END ==
LOC: SKLAB4 12:38
DX: R60.0 Localized edema (principal)

== ENCOUNTER → 2017-09-17 | Outpatient (CLI) | payer MEDICARE, MEDICAID, OTHER | LOC: M RAD 15:34 | DX: R60.0 Localized edema (principal) | CPT/HCPCS: 93971 ==

== ENCOUNTER → 2017-09-23 | Outpatient (REF) | payer MEDICARE, MEDICAID, OTHER ==
[2017-09-23 10:19] LABS: TOTAL 25(OH) VITAMIN D 43.2 NG/ML (30.0-100.0)
[2017-09-23 10:33] LABS: MAGNESIUM LEVEL 2.2 MG/DL (1.8-2.4)
[2017-09-23 10:33] LABS: IRON (FE) 50 UG/DL (65-175); PERCENT SATURATION 15.2 % (19.7-50.0); TOTAL IRON BINDING CAPACITY 328 UG/DL (250-450)
== END ==
LOC: SKLAB4 09:44
DX: D64.9 Anemia, unspecified (principal); F03.90 Unspecified dementia, unspecified severity, without behavioral disturbance, psychotic disturbance, mood disturbance, and anxiety; N18.9 Chronic kidney disease, unspecified
CPT/HCPCS: 83550

== ENCOUNTER → 2017-10-03 | Outpatient (REF) | payer MEDICARE, MEDICAID, OTHER ==
[2017-10-03 08:17] LABS: ANION GAP 8 MEQ/L (8-16); BLOOD UREA NITROGEN 14 MG/DL (7-18); CALCIUM LEVEL 8.1 MG/DL (8.8-10.2); CARBON DIOXIDE LEVEL 30 MEQ/L (21-32); CHLORIDE LEVEL 106 MEQ/L (98-107); CREATININE FOR GFR 1.05 MG/DL (0.70-1.30); GLOMERULAR FILTRATION RATE > 60.0 (>35); GLUCOSE, FASTING 94 MG/DL (70-100); POTASSIUM SERUM 3.8 MEQ/L (3.5-5.1); SODIUM LEVEL 144 MEQ/L (136-145)
== END ==
LOC: SKLAB4 10:45
DX: I50.9 Heart failure, unspecified (principal)
CPT/HCPCS: 36415

== ENCOUNTER → 2017-10-10 | Outpatient (REF) | payer MEDICARE, MEDICAID, OTHER ==
[2017-10-10 09:17] LABS: ANION GAP 8 MEQ/L (8-16); BLOOD UREA NITROGEN 18 MG/DL (7-18); CALCIUM LEVEL 8.1 MG/DL (8.8-10.2); CARBON DIOXIDE LEVEL 31 MEQ/L (21-32); CHLORIDE LEVEL 104 MEQ/L (98-107); CREATININE FOR GFR 1.25 MG/DL (0.70-1.30); GLOMERULAR FILTRATION RATE 57.9 (>35); GLUCOSE, FASTING 150 MG/DL (70-100); POTASSIUM SERUM 4.1 MEQ/L (3.5-5.1); SODIUM LEVEL 143 MEQ/L (136-145)
== END ==
LOC: SKLAB4 11:08
DX: I50.9 Heart failure, unspecified (principal)
CPT/HCPCS: 36415

== ENCOUNTER → 2017-10-24 | Outpatient (REF) | payer MEDICARE, MEDICAID, OTHER ==
[2017-10-24 09:39] LABS: ANION GAP 8 MEQ/L (8-16); BLOOD UREA NITROGEN 17 MG/DL (7-18); CALCIUM LEVEL 8.6 MG/DL (8.8-10.2); CARBON DIOXIDE LEVEL 31 MEQ/L (21-32); CHLORIDE LEVEL 103 MEQ/L (98-107); CREATININE FOR GFR 1.25 MG/DL (0.70-1.30); GLOMERULAR FILTRATION RATE 57.9 (>35); GLUCOSE, FASTING 136 MG/DL (70-100); POTASSIUM SERUM 4.2 MEQ/L (3.5-5.1); SODIUM LEVEL 142 MEQ/L (136-145)
== END ==
LOC: SKLAB5 10:00
DX: I50.9 Heart failure, unspecified (principal)
CPT/HCPCS: 36415

== ENCOUNTER → 2017-10-31 | Outpatient (REF) | payer MEDICARE, MEDICAID, OTHER ==
[2017-10-31 08:31] LABS: HEMATOCRIT 38.1 % (42.0-52.0); HEMOGLOBIN 11.4 g/dl (13.5-17.5); MEAN CORPUSCULAR HEMOGLOBIN 26.5 pg (27.0-33.0); MEAN CORPUSCULAR HGB CONC 29.9 g/dl (32.0-36.5); MEAN CORPUSCULAR VOLUME 88.6 fl (80.0-96.0); PLATELET COUNT, AUTOMATED 265 10^3/uL (150-450); RED CELL DISTRIBUTION WIDTH 14.9 % (11.5-14.5); WHITE BLOOD COUNT 6.5 10^3/uL (4.0-10.0)
[2017-10-31 08:55] LABS: ALBUMIN/GLOBULIN RATIO 0.83 (1.00-1.93); ALKALINE PHOSPHATASE 105 U/L (45-117); ALT/SGPT 15 U/L (12-78); ANION GAP 7 MEQ/L (8-16); AST/SGOT 17 U/L (7-37); BILIRUBIN,TOTAL 0.9 MG/DL (0.2-1.0); BLOOD UREA NITROGEN 17 MG/DL (7-18); CALCIUM LEVEL 8.5 MG/DL (8.8-10.2); CARBON DIOXIDE LEVEL 31 MEQ/L (21-32); CHLORIDE LEVEL 105 MEQ/L (98-107); CREATININE FOR GFR 1.28 MG/DL (0.70-1.30); GLOMERULAR FILTRATION RATE 56.3 (>35); GLUCOSE, FASTING 128 MG/DL (70-100); POTASSIUM SERUM 4.4 MEQ/L (3.5-5.1); SODIUM LEVEL 143 MEQ/L (136-145); TOTAL PROTEIN 6.6 GM/DL (6.4-8.2)
== END ==
LOC: SKLAB4 08:00
DX: N18.9 Chronic kidney disease, unspecified (principal)
CPT/HCPCS: 80053

== ENCOUNTER → 2017-11-05 | Outpatient (REF) | payer MEDICARE, MEDICAID, OTHER ==
[2017-11-05 07:28] LABS: CHOLESTEROL LEVEL 101 MG/DL (<200); CHOLESTEROL RISK RATIO 2.148 (<5); HDL CHOLESTEROL 47 MG/DL (>40); LDL CHOLESTEROL 37.8 MG/DL (<100); NON-HDL-C 54 MG/DL; TRIGLYCERIDES LEVEL 81 MG/DL (<150)
[2017-11-05 07:29] LABS: ESTIMATED AVERAGE GLUCOSE 117 MG/DL (60-110); HEMOGLOBIN A1c 5.7 %
== END ==
LOC: SKLAB4 14:14
DX: E11.9 Type 2 diabetes mellitus without complications (principal); E78.00 Pure hypercholesterolemia, unspecified
CPT/HCPCS: 83036

== ENCOUNTER → 2017-11-07 | Outpatient (REF) | payer MEDICARE, MEDICAID, OTHER ==
[2017-11-07 08:25] LABS: ANION GAP 6 MEQ/L (8-16); BLOOD UREA NITROGEN 17 MG/DL (7-18); CALCIUM LEVEL 8.6 MG/DL (8.8-10.2); CARBON DIOXIDE LEVEL 31 MEQ/L (21-32); CHLORIDE LEVEL 105 MEQ/L (98-107); GLOMERULAR FILTRATION RATE > 60.0 (>35); GLUCOSE, FASTING 106 MG/DL (70-100); POTASSIUM SERUM 3.9 MEQ/L (3.5-5.1); SODIUM LEVEL 142 MEQ/L (136-145)
== END ==
LOC: SKLAB4 08:00
DX: N18.9 Chronic kidney disease, unspecified (principal)
CPT/HCPCS: 36415

== ENCOUNTER → 2017-11-14 | Outpatient (REF) | payer MEDICARE, MEDICAID, OTHER ==
[2017-11-14 08:54] LABS: ANION GAP 8 MEQ/L (8-16); BLOOD UREA NITROGEN 16 MG/DL (7-18); CALCIUM LEVEL 8.3 MG/DL (8.8-10.2); CARBON DIOXIDE LEVEL 31 MEQ/L (21-32); CHLORIDE LEVEL 103 MEQ/L (98-107); CREATININE FOR GFR 1.16 MG/DL (0.70-1.30); GLOMERULAR FILTRATION RATE > 60.0 (>35); GLUCOSE, FASTING 92 MG/DL (70-100); POTASSIUM SERUM 4.3 MEQ/L (3.5-5.1); SODIUM LEVEL 142 MEQ/L (136-145)
== END ==
LOC: SKLAB4 12:57
DX: N18.9 Chronic kidney disease, unspecified (principal)
CPT/HCPCS: 36415

== ENCOUNTER → 2017-11-20 | Outpatient (CLI) | payer MEDICARE, MEDICAID, OTHER | LOC: M RAD 14:19 | DX: R91.8 Other nonspecific abnormal finding of lung field (principal); R93.8 Abnormal findings on diagnostic imaging of other specified body structures; I31.3 Pericardial effusion (noninflammatory); J90 Pleural effusion, not elsewhere classified; I51.7 Cardiomegaly; K76.89 Other specified diseases of liver; R09.89 Other specified symptoms and signs involving the circulatory and respiratory systems | CPT/HCPCS: 71045 ==

== ENCOUNTER → 2017-11-20 | Outpatient (REF) | payer MEDICARE, MEDICAID, OTHER | LOC: SKLAB4 11:27 | DX: R93.8 Abnormal findings on diagnostic imaging of other specified body structures (principal); J90 Pleural effusion, not elsewhere classified; I51.7 Cardiomegaly; R09.89 Other specified symptoms and signs involving the circulatory and respiratory systems | CPT/HCPCS: 71045 ==

== ENCOUNTER → 2017-11-22 | Outpatient (REF) | payer MEDICARE, MEDICAID, OTHER ==
[2017-11-22 08:23] LABS: ANION GAP 6 MEQ/L (8-16); BLOOD UREA NITROGEN 16 MG/DL (7-18); CALCIUM LEVEL 8.2 MG/DL (8.8-10.2); CARBON DIOXIDE LEVEL 33 MEQ/L (21-32); CHLORIDE LEVEL 104 MEQ/L (98-107); CREATININE FOR GFR 1.45 MG/DL (0.70-1.30); GLOMERULAR FILTRATION RATE 48.8 (>35); GLUCOSE, FASTING 105 MG/DL (70-100); POTASSIUM SERUM 4.1 MEQ/L (3.5-5.1); SODIUM LEVEL 143 MEQ/L (136-145)
== END ==
LOC: SKLAB4 08:00
DX: I50.9 Heart failure, unspecified (principal)
CPT/HCPCS: 80048

== ENCOUNTER → 2017-11-25 | Outpatient (REF) | payer MEDICARE, MEDICAID, OTHER ==
[2017-11-25 09:30] LABS: ANION GAP 6 MEQ/L (8-16); BLOOD UREA NITROGEN 16 MG/DL (7-18); CALCIUM LEVEL 8.7 MG/DL (8.8-10.2); CARBON DIOXIDE LEVEL 32 MEQ/L (21-32); CHLORIDE LEVEL 101 MEQ/L (98-107); CREATININE FOR GFR 1.46 MG/DL (0.70-1.30); GLOMERULAR FILTRATION RATE 48.4 (>35); GLUCOSE, FASTING 112 MG/DL (70-100); POTASSIUM SERUM 4.3 MEQ/L (3.5-5.1); SODIUM LEVEL 139 MEQ/L (136-145)
== END ==
LOC: SKLAB4 03:30
DX: J18.9 Pneumonia, unspecified organism (principal)
CPT/HCPCS: 80048

== ENCOUNTER → 2017-12-23 | Outpatient (REF) | payer MEDICARE, MEDICAID, OTHER ==
[2017-12-23 10:45] LABS: ANION GAP 11 MEQ/L (8-16); BLOOD UREA NITROGEN 15 MG/DL (7-18); CALCIUM LEVEL 8.8 MG/DL (8.8-10.2); CARBON DIOXIDE LEVEL 29 MEQ/L (21-32); CHLORIDE LEVEL 102 MEQ/L (98-107); CREATININE FOR GFR 1.23 MG/DL (0.70-1.30); GLUCOSE, FASTING 147 MG/DL (70-100); POTASSIUM SERUM 4.4 MEQ/L (3.5-5.1); SODIUM LEVEL 142 MEQ/L (136-145)
== END ==
LOC: SKLAB4 10:01
DX: N18.9 Chronic kidney disease, unspecified (principal)
CPT/HCPCS: 36415

== ENCOUNTER → 2018-01-20 | Outpatient (REF) | payer MEDICARE, MEDICAID, OTHER ==
[2018-01-20 08:47] LABS: ANION GAP 8 MEQ/L (8-16); BLOOD UREA NITROGEN 14 MG/DL (7-18); CALCIUM LEVEL 8.4 MG/DL (8.8-10.2); CARBON DIOXIDE LEVEL 31 MEQ/L (21-32); CHLORIDE LEVEL 105 MEQ/L (98-107); CREATININE FOR GFR 1.14 MG/DL (0.70-1.30); GLOMERULAR FILTRATION RATE > 60.0 (>35); GLUCOSE, FASTING 87 MG/DL (70-100); POTASSIUM SERUM 4.1 MEQ/L (3.5-5.1); SODIUM LEVEL 144 MEQ/L (136-145)
== END ==
LOC: SKLAB4 10:21
DX: N18.9 Chronic kidney disease, unspecified (principal)
CPT/HCPCS: 80048

== ENCOUNTER → 2018-02-24 | Outpatient (REF) | payer MEDICARE, MEDICAID, OTHER ==
[2018-02-24 08:44] LABS: ANION GAP 4 MEQ/L (8-16); BLOOD UREA NITROGEN 19 MG/DL (7-18); CALCIUM LEVEL 8.7 MG/DL (8.8-10.2); CARBON DIOXIDE LEVEL 30 MEQ/L (21-32); CHLORIDE LEVEL 105 MEQ/L (98-107); CREATININE FOR GFR 1.12 MG/DL (0.70-1.30); GLOMERULAR FILTRATION RATE > 60.0 (>35); GLUCOSE, FASTING 90 MG/DL (70-100); POTASSIUM SERUM 4.2 MEQ/L (3.5-5.1); SODIUM LEVEL 139 MEQ/L (136-145)
== END ==
LOC: SKLAB4 09:37
DX: N18.9 Chronic kidney disease, unspecified (principal)
CPT/HCPCS: 80048

== ENCOUNTER → 2018-03-10 | Outpatient (REF) | payer MEDICARE, MEDICAID, OTHER ==
[2018-03-10 07:59] LABS: ALBUMIN 2.5 GM/DL (3.2-5.2); ALBUMIN/GLOBULIN RATIO 0.74 (1.00-1.93); ALKALINE PHOSPHATASE 112 U/L (45-117); ALT/SGPT 11 U/L (12-78); ANION GAP 8 MEQ/L (8-16); AST/SGOT 15 U/L (7-37); BILIRUBIN,TOTAL 0.7 MG/DL (0.2-1.0); BLOOD UREA NITROGEN 15 MG/DL (7-18); CALCIUM LEVEL 8.1 MG/DL (8.8-10.2); CARBON DIOXIDE LEVEL 30 MEQ/L (21-32); CHLORIDE LEVEL 102 MEQ/L (98-107); CREATININE FOR GFR 1.25 MG/DL (0.70-1.30); GLOMERULAR FILTRATION RATE 57.9 (>35); GLUCOSE, FASTING 91 MG/DL (70-100); POTASSIUM SERUM 3.8 MEQ/L (3.5-5.1); SODIUM LEVEL 140 MEQ/L (136-145); TOTAL PROTEIN 5.9 GM/DL (6.4-8.2)
== END ==
LOC: SKLAB4 09:09
DX: N18.3 Chronic kidney disease, stage 3 (moderate) (principal)
CPT/HCPCS: 80053

== ENCOUNTER → 2018-03-11 | Outpatient (CLI) | payer MEDICARE, MEDICAID | LOC: M RAD 09:47 | DX: M79.604 Pain in right leg (principal) | CPT/HCPCS: 93971 ==

== ENCOUNTER → 2018-03-24 | Outpatient (REF) | payer MEDICARE, MEDICAID ==
[2018-03-24 09:23] LABS: ANION GAP 7 MEQ/L (8-16); BLOOD UREA NITROGEN 21 MG/DL (7-18); CALCIUM LEVEL 8.4 MG/DL (8.8-10.2); CARBON DIOXIDE LEVEL 30 MEQ/L (21-32); CHLORIDE LEVEL 105 MEQ/L (98-107); CREATININE FOR GFR 1.32 MG/DL (0.70-1.30); GLOMERULAR FILTRATION RATE 54.4 (>35); GLUCOSE, FASTING 114 MG/DL (70-100); POTASSIUM SERUM 4.4 MEQ/L (3.5-5.1); SODIUM LEVEL 142 MEQ/L (136-145)
== END ==
LOC: SKLAB4 11:23
DX: N18.9 Chronic kidney disease, unspecified (principal)
CPT/HCPCS: 80048

== ENCOUNTER → 2018-04-17 | Outpatient (REF) | payer MEDICARE, MEDICAID ==
[~2018-04-17] MED LIST changes: +ACET1TAB55 PO; +ASPI81CH PO; +BENG1CRE3 TOP; +DULC10SU2 PR; +ENEM1ENE4 PR; +FEVE650S3 PR; -GABA-282 PO; +GABA-843 PO; -GABA600T PO; +GABA600T4 PO; +GUAI100S27 PO; +LASI40TA9 PO; -LISI2.5T3 PO; +LISI2.5T5 PO; +METO1TAB87 PO; +METO25TA4 PO; +MILK120011 PO; +NITR4TASL SL; +VITA50005 PO
[2018-04-17 08:15] LABS: BLOOD UREA NITROGEN 18 MG/DL (7-18); CALCIUM LEVEL 8.2 MG/DL (8.8-10.2); CARBON DIOXIDE LEVEL 27 MEQ/L (21-32); CHLORIDE LEVEL 108 MEQ/L (98-107); CREATININE FOR GFR 1.19 MG/DL (0.70-1.30); GLOMERULAR FILTRATION RATE > 60.0 (>35); GLUCOSE, FASTING 101 MG/DL (70-100); POTASSIUM SERUM 3.8 MEQ/L (3.5-5.1); SODIUM LEVEL 141 MEQ/L (136-145)
== END ==
LOC: SKLAB4 04-15 09:42
PROVIDERS: ATTEND Family Medicine
DX: N18.9 Chronic kidney disease, unspecified (principal)

== ENCOUNTER → 2018-04-24 | Outpatient (REF) | payer MEDICARE, MEDICAID ==
[2018-04-24 09:06] LABS: BLOOD UREA NITROGEN 22 MG/DL (7-18); CALCIUM LEVEL 8.2 MG/DL (8.8-10.2); CARBON DIOXIDE LEVEL 30 MEQ/L (21-32); CHLORIDE LEVEL 106 MEQ/L (98-107); CREATININE FOR GFR 1.21 MG/DL (0.70-1.30); GLOMERULAR FILTRATION RATE > 60.0 (>35); GLUCOSE, FASTING 87 MG/DL (70-100); POTASSIUM SERUM 4.2 MEQ/L (3.5-5.1); SODIUM LEVEL 143 MEQ/L (136-145)
== END ==
LOC: SKLAB4 11:36
PROVIDERS: ATTEND Family Medicine
DX: N18.9 Chronic kidney disease, unspecified (principal)

== ENCOUNTER → 2018-05-01 | Outpatient (REF) | payer MEDICARE, MEDICAID ==
[2018-05-01 08:27] LABS: HEMATOCRIT 32.9 % (42.0-52.0); HEMOGLOBIN 9.7 g/dl (13.5-17.5); MEAN CORPUSCULAR HEMOGLOBIN 25.3 pg (27.0-33.0); MEAN CORPUSCULAR HGB CONC 29.5 g/dl (32.0-36.5); MEAN CORPUSCULAR VOLUME 85.9 fl (80.0-96.0); PLATELET COUNT, AUTOMATED 358 10^3/uL (150-450); RED BLOOD COUNT 3.83 10^6/uL (4.30-6.10); WHITE BLOOD COUNT 6.6 10^3/uL (4.0-10.0)
[2018-05-01 08:52] LABS: ALBUMIN 2.2 GM/DL (3.2-5.2); BILIRUBIN,TOTAL 0.6 MG/DL (0.2-1.0); CALCIUM LEVEL 8.1 MG/DL (8.8-10.2); CREATININE FOR GFR 1.31 MG/DL (0.70-1.30); GLOMERULAR FILTRATION RATE 54.8 (>35); MAGNESIUM LEVEL 2.3 MG/DL (1.8-2.4); PERCENT SATURATION 9.7 % (19.7-50.0); POTASSIUM SERUM 4.6 MEQ/L (3.5-5.1); THYROID STIMULATING HORMONE 3.26 uIU/ML (0.358-3.740); TOTAL PROTEIN 5.8 GM/DL (6.4-8.2)
[2018-05-01 09:28] LABS: TOTAL 25(OH) VITAMIN D 42.8 NG/ML (30.0-100.0)
== END ==
LOC: SKLAB4 08:00
PROVIDERS: ATTEND Family Medicine
DX: D64.9 Anemia, unspecified (principal); N18.9 Chronic kidney disease, unspecified; Z79.899 Other long term (current) drug therapy

== ENCOUNTER → 2018-05-08 | Outpatient (REF) | payer MEDICARE, MEDICAID ==
[2018-05-08 10:55] LABS: CALCIUM LEVEL 7.8 MG/DL (8.8-10.2); CREATININE FOR GFR 1.23 MG/DL (0.70-1.30); POTASSIUM SERUM 4.1 MEQ/L (3.5-5.1)
== END ==
LOC: SKLAB4 11:34
PROVIDERS: ATTEND Family Medicine
DX: N18.9 Chronic kidney disease, unspecified (principal)

== ENCOUNTER → 2018-05-15 | Outpatient (REF) | payer MEDICARE, MEDICAID ==
[2018-05-15 08:26] LABS: BLOOD UREA NITROGEN 18 MG/DL (7-18); CALCIUM LEVEL 8.1 MG/DL (8.8-10.2); CARBON DIOXIDE LEVEL 30 MEQ/L (21-32); CHLORIDE LEVEL 105 MEQ/L (98-107); CREATININE FOR GFR 1.19 MG/DL (0.70-1.30); GLOMERULAR FILTRATION RATE > 60.0 (>35); GLUCOSE, FASTING 102 MG/DL (70-100); POTASSIUM SERUM 4.1 MEQ/L (3.5-5.1); SODIUM LEVEL 142 MEQ/L (136-145)
== END ==
LOC: SKLAB4 11:36
PROVIDERS: ATTEND Family Medicine
DX: N18.9 Chronic kidney disease, unspecified (principal)

== ENCOUNTER → 2018-05-22 | Outpatient (REF) | payer MEDICARE, MEDICAID ==
[2018-05-22 08:53] LABS: CALCIUM LEVEL 8.4 MG/DL (8.8-10.2); CREATININE FOR GFR 1.23 MG/DL (0.70-1.30); POTASSIUM SERUM 4.1 MEQ/L (3.5-5.1)
== END ==
LOC: SKLAB4 13:56
PROVIDERS: ATTEND Family Medicine
DX: N18.9 Chronic kidney disease, unspecified (principal)

== ENCOUNTER → 2018-05-29 | Outpatient (REF) | payer MEDICARE, MEDICAID ==
[2018-05-29 09:39] LABS: CALCIUM LEVEL 7.7 MG/DL (8.8-10.2); CREATININE FOR GFR 1.27 MG/DL (0.70-1.30); GLOMERULAR FILTRATION RATE 56.8 (>35); POTASSIUM SERUM 4.2 MEQ/L (3.5-5.1)
== END ==
LOC: SKLAB4 09:25
PROVIDERS: ATTEND Family Medicine
DX: N18.9 Chronic kidney disease, unspecified (principal)

== ENCOUNTER → 2018-06-05 | Outpatient (REF) | payer MEDICARE, MEDICAID ==
[2018-06-05 08:48] LABS: CREATININE FOR GFR 1.24 MG/DL (0.70-1.30); GLOMERULAR FILTRATION RATE 58.4 (>35); POTASSIUM SERUM 4.1 MEQ/L (3.5-5.1)
== END ==
LOC: SKLAB4 10:00
PROVIDERS: ATTEND Family Medicine
DX: N18.9 Chronic kidney disease, unspecified (principal)

== ENCOUNTER → 2018-06-12 | Outpatient (REF) | payer MEDICARE, MEDICAID ==
[2018-06-12 11:02] LABS: CALCIUM LEVEL 7.6 MG/DL (8.8-10.2); CREATININE FOR GFR 1.34 MG/DL (0.70-1.30); GLOMERULAR FILTRATION RATE 53.4 (>35); POTASSIUM SERUM 3.9 MEQ/L (3.5-5.1)
== END ==
LOC: SKLAB4 09:38
PROVIDERS: ATTEND Family Medicine
DX: N18.9 Chronic kidney disease, unspecified (principal)

== ENCOUNTER → 2018-06-19 | Outpatient (REF) | payer MEDICARE, MEDICAID ==
[2018-06-19 12:34] LABS: BLOOD UREA NITROGEN 18 MG/DL (7-18); CALCIUM LEVEL 7.8 MG/DL (8.8-10.2); CARBON DIOXIDE LEVEL 30 MEQ/L (21-32); CHLORIDE LEVEL 108 MEQ/L (98-107); CREATININE FOR GFR 1.11 MG/DL (0.70-1.30); GLOMERULAR FILTRATION RATE > 60.0 (>35); GLUCOSE, FASTING 116 MG/DL (70-100); POTASSIUM SERUM 4.2 MEQ/L (3.5-5.1); SODIUM LEVEL 142 MEQ/L (136-145)
== END ==
LOC: SKLAB4 12:26
PROVIDERS: ATTEND Family Medicine
DX: N18.9 Chronic kidney disease, unspecified (principal)

== ENCOUNTER → 2018-06-26 | Outpatient (REF) | payer MEDICARE, MEDICAID ==
[2018-06-26 09:20] LABS: BLOOD UREA NITROGEN 15 MG/DL (7-18); CALCIUM LEVEL 7.8 MG/DL (8.8-10.2); CARBON DIOXIDE LEVEL 28 MEQ/L (21-32); CHLORIDE LEVEL 104 MEQ/L (98-107); CREATININE FOR GFR 1.08 MG/DL (0.70-1.30); GLOMERULAR FILTRATION RATE > 60.0 (>35); GLUCOSE, FASTING 117 MG/DL (70-100); POTASSIUM SERUM 3.9 MEQ/L (3.5-5.1); SODIUM LEVEL 138 MEQ/L (136-145)
== END ==
LOC: SKLAB4 10:44
PROVIDERS: ATTEND Family Medicine
DX: N18.9 Chronic kidney disease, unspecified (principal)

== ENCOUNTER → 2018-07-03 | Outpatient (REF) | payer MEDICARE, MEDICAID ==
[2018-07-03 08:12] LABS: BLOOD UREA NITROGEN 16 MG/DL (7-18); CALCIUM LEVEL 7.9 MG/DL (8.8-10.2); CARBON DIOXIDE LEVEL 31 MEQ/L (21-32); CHLORIDE LEVEL 103 MEQ/L (98-107); CREATININE FOR GFR 1.09 MG/DL (0.70-1.30); GLOMERULAR FILTRATION RATE > 60.0 (>35); GLUCOSE, FASTING 96 MG/DL (70-100); POTASSIUM SERUM 3.9 MEQ/L (3.5-5.1); SODIUM LEVEL 140 MEQ/L (136-145)
== END ==
LOC: SKLAB4 10:04
PROVIDERS: ATTEND Family Medicine
DX: N19 Unspecified kidney failure (principal)

== ENCOUNTER → 2018-07-10 | Outpatient (REF) | payer MEDICARE, MEDICAID ==
[~2018-07-10] MED LIST changes: -/MAGN40TA PO; -/TERBI25T PO; +LAMI1TAB6 PO; +LISI-1046 PO; -LISI2.5T5 PO; +MAGN400T15 PO; +METO-346 PO; -METO12TA PO; +METO1TAB63 PO
[2018-07-10 09:26] LABS: BLOOD UREA NITROGEN 19 MG/DL (7-18); CALCIUM LEVEL 8.1 MG/DL (8.8-10.2); CARBON DIOXIDE LEVEL 30 MEQ/L (21-32); CHLORIDE LEVEL 105 MEQ/L (98-107); CREATININE FOR GFR 1.14 MG/DL (0.70-1.30); GLOMERULAR FILTRATION RATE > 60.0 (>35); GLUCOSE, FASTING 126 MG/DL (70-100); POTASSIUM SERUM 3.9 MEQ/L (3.5-5.1); SODIUM LEVEL 141 MEQ/L (136-145)
== END ==
LOC: SKLAB4 13:56
PROVIDERS: ATTEND Family Medicine
DX: N19 Unspecified kidney failure (principal)

== ENCOUNTER → 2018-07-17 | Outpatient (REF) | payer MEDICARE, MEDICAID ==
[~2018-07-17] MED LIST changes: -ASPI81CH PO; +ASPI81CH49 PO; +GUAI100L6 PO; -GUAI100S27 PO
[2018-07-17 08:39] LABS: BLOOD UREA NITROGEN 18 MG/DL (7-18); CALCIUM LEVEL 8.2 MG/DL (8.8-10.2); CARBON DIOXIDE LEVEL 31 MEQ/L (21-32); CHLORIDE LEVEL 103 MEQ/L (98-107); CREATININE FOR GFR 1.21 MG/DL (0.70-1.30); GLOMERULAR FILTRATION RATE > 60.0 (>35); GLUCOSE, FASTING 91 MG/DL (70-100); POTASSIUM SERUM 4.1 MEQ/L (3.5-5.1); SODIUM LEVEL 140 MEQ/L (136-145)
== END ==
LOC: SKLAB4 08:06
PROVIDERS: ATTEND Family Medicine
DX: N19 Unspecified kidney failure (principal)

== ENCOUNTER → 2018-07-24 | Outpatient (REF) | payer MEDICARE, MEDICAID ==
[2018-07-24 10:39] LABS: BLOOD UREA NITROGEN 19 MG/DL (7-18); CALCIUM LEVEL 7.7 MG/DL (8.8-10.2); CARBON DIOXIDE LEVEL 29 MEQ/L (21-32); CHLORIDE LEVEL 105 MEQ/L (98-107); CREATININE FOR GFR 1.19 MG/DL (0.70-1.30); GLOMERULAR FILTRATION RATE > 60.0 (>35); GLUCOSE, FASTING 133 MG/DL (70-100); POTASSIUM SERUM 4.1 MEQ/L (3.5-5.1); SODIUM LEVEL 140 MEQ/L (136-145)
== END ==
LOC: SKLAB4 10:19
PROVIDERS: ATTEND Family Medicine
DX: N19 Unspecified kidney failure (principal)

== ENCOUNTER → 2018-07-31 | Outpatient (REF) | payer MEDICARE, MEDICAID ==
[~2018-07-31] MED LIST changes: +EUCECRE8 TOP; +VITA1CAP25 PO
[2018-07-31 08:41] LABS: BLOOD UREA NITROGEN 24 MG/DL (7-18); CALCIUM LEVEL 7.8 MG/DL (8.8-10.2); CARBON DIOXIDE LEVEL 31 MEQ/L (21-32); CHLORIDE LEVEL 106 MEQ/L (98-107); CREATININE FOR GFR 1.05 MG/DL (0.70-1.30); GLOMERULAR FILTRATION RATE > 60.0 (>35); GLUCOSE, FASTING 101 MG/DL (70-100); POTASSIUM SERUM 4.5 MEQ/L (3.5-5.1); SODIUM LEVEL 142 MEQ/L (136-145)
== END ==
LOC: SKLAB4 11:07
PROVIDERS: ATTEND Family Medicine
DX: I50.9 Heart failure, unspecified (principal)

== ENCOUNTER → 2018-08-01 | Outpatient (REF) | payer MEDICARE, MEDICAID ==
[2018-08-01 09:19] LABS: HEMATOCRIT 23.1 % (42.0-52.0); MEAN CORPUSCULAR HEMOGLOBIN 26.6 pg (27.0-33.0); MEAN CORPUSCULAR HGB CONC 30.3 g/dl (32.0-36.5); MEAN CORPUSCULAR VOLUME 87.8 fl (80.0-96.0); PLATELET COUNT, AUTOMATED 285 10^3/uL (150-450); RED BLOOD COUNT 2.63 10^6/uL (4.30-6.10); WHITE BLOOD COUNT 8.8 10^3/uL (4.0-10.0)
[2018-08-01 09:43] LABS: ALBUMIN 1.2 GM/DL (3.2-5.2); ALT/SGPT 13 U/L (12-78); BILIRUBIN,TOTAL 0.4 MG/DL (0.2-1.0); BLOOD UREA NITROGEN 35 MG/DL (7-18); CALCIUM LEVEL 7.5 MG/DL (8.8-10.2); CARBON DIOXIDE LEVEL 25 MEQ/L (21-32); CHLORIDE LEVEL 111 MEQ/L (98-107); CREATININE FOR GFR 1.11 MG/DL (0.70-1.30); GLOMERULAR FILTRATION RATE > 60.0 (>35); GLUCOSE, FASTING 114 MG/DL (70-100); POTASSIUM SERUM 4.7 MEQ/L (3.5-5.1); SODIUM LEVEL 141 MEQ/L (136-145); TOTAL PROTEIN 4.5 GM/DL (6.4-8.2)
== END ==
LOC: SKLAB4 08:45
PROVIDERS: ATTEND Family Medicine
DX: K62.5 Hemorrhage of anus and rectum (principal)

== ENCOUNTER 2018-08-04 14:49 | Outpatient (CLI) | payer MEDICARE, MEDICAID ==
[~2018-08-04 14:49] MED LIST changes: -EUCECRE8 TOP; -VITA1CAP25 PO
[2018-08-04 14:50] VITALS: BP_SYST 102; BP_SYST 117; BP_DIAS 58; BP_DIAS 66
[2018-08-04 15:30] VITALS: BP 102/59
[2018-08-04 16:30] VITALS: BP 103/64
[2018-08-04] MEDS ORDERED: VITA1CAP25 PO (16:34)
[2018-08-04] MEDS ORDERED: EUCECRE8 TOP (16:35)
[2018-08-04] MEDS ORDERED: FUROSEMIDE 20 MG/2 ML VIAL (J1940) IV ONE (16:45)
[2018-08-04 17:40] VITALS: BP 105/77
[2018-08-04 18:30] VITALS: BP 118/69
[2018-08-04 18:52] VITALS: BP 118/67
== END 2018-08-04 19:00 | disposition home or self-care (01) ==
LOC: M INFU 14:49
PROVIDERS: ATTEND Family Medicine
DX: D50.0 Iron deficiency anemia secondary to blood loss (chronic) (principal); K62.5 Hemorrhage of anus and rectum
CPT/HCPCS: 36415; 36430; 85027; 86850; 86900; 86901; 86920; P9016

== ENCOUNTER → 2018-08-04 | Outpatient (REF) | payer MEDICARE, MEDICAID ==
[2018-08-04 07:50] LABS: HEMATOCRIT 21.2 % (42.0-52.0); MEAN CORPUSCULAR HEMOGLOBIN 26.9 pg (27.0-33.0); MEAN CORPUSCULAR HGB CONC 29.7 g/dl (32.0-36.5); MEAN CORPUSCULAR VOLUME 90.6 fl (80.0-96.0); PLATELET COUNT, AUTOMATED 334 10^3/uL (150-450); RED BLOOD COUNT 2.34 10^6/uL (4.30-6.10); WHITE BLOOD COUNT 10.6 10^3/uL (4.0-10.0)
[2018-08-04 08:02] LABS: HEMOGLOBIN 6.3 g/dl (13.5-17.5)
== END ==
LOC: SKLAB4 07:22
PROVIDERS: ATTEND Family Medicine
DX: K62.5 Hemorrhage of anus and rectum (principal)

== ENCOUNTER → 2018-08-05 | Outpatient (REF) | payer MEDICARE, MEDICAID ==
[~2018-08-05] MED LIST changes: +EUCECRE8 TOP; +VITA1CAP25 PO
[2018-08-05 12:19] LABS: HEMATOCRIT 26.2 % (42.0-52.0); HEMOGLOBIN 8.1 g/dl (13.5-17.5); MEAN CORPUSCULAR HEMOGLOBIN 27.6 pg (27.0-33.0); MEAN CORPUSCULAR HGB CONC 30.9 g/dl (32.0-36.5); MEAN CORPUSCULAR VOLUME 89.1 fl (80.0-96.0); PLATELET COUNT, AUTOMATED 327 10^3/uL (150-450); RED BLOOD COUNT 2.94 10^6/uL (4.30-6.10); WHITE BLOOD COUNT 10.7 10^3/uL (4.0-10.0)
== END ==
LOC: SKLAB4 11:21
PROVIDERS: ATTEND Family Medicine
DX: D64.9 Anemia, unspecified (principal)

== ENCOUNTER → 2018-08-07 | Outpatient (REF) | payer MEDICARE, MEDICAID ==
[2018-08-07 08:30] LABS: HEMATOCRIT 28.4 % (42.0-52.0); HEMOGLOBIN 8.8 g/dl (13.5-17.5); MEAN CORPUSCULAR HEMOGLOBIN 27.4 pg (27.0-33.0); MEAN CORPUSCULAR VOLUME 88.5 fl (80.0-96.0); PLATELET COUNT, AUTOMATED 374 10^3/uL (150-450); RED BLOOD COUNT 3.21 10^6/uL (4.30-6.10); WHITE BLOOD COUNT 11.4 10^3/uL (4.0-10.0)
[2018-08-07 08:58] LABS: CALCIUM LEVEL 7.4 MG/DL (8.8-10.2); CREATININE FOR GFR 1.29 MG/DL (0.70-1.30); GLOMERULAR FILTRATION RATE 55.8 (>35); POTASSIUM SERUM 3.6 MEQ/L (3.5-5.1)
== END ==
LOC: SKLAB4 10:12
PROVIDERS: ATTEND Family Medicine
DX: N17.9 Acute kidney failure, unspecified (principal)

== ENCOUNTER → 2018-08-14 | Outpatient (REF) | payer MEDICARE, MEDICAID ==
[2018-08-14 08:12] LABS: HEMATOCRIT 30.2 % (42.0-52.0); HEMOGLOBIN 9.3 g/dl (13.5-17.5); MEAN CORPUSCULAR HGB CONC 30.8 g/dl (32.0-36.5); MEAN CORPUSCULAR VOLUME 87.8 fl (80.0-96.0); PLATELET COUNT, AUTOMATED 388 10^3/uL (150-450); RED BLOOD COUNT 3.44 10^6/uL (4.30-6.10)
[2018-08-14 09:40] LABS: BLOOD UREA NITROGEN 16 MG/DL (7-18); CALCIUM LEVEL 7.5 MG/DL (8.8-10.2); CARBON DIOXIDE LEVEL 27 MEQ/L (21-32); CHLORIDE LEVEL 105 MEQ/L (98-107); GLOMERULAR FILTRATION RATE > 60.0 (>35); GLUCOSE, FASTING 91 MG/DL (70-100); POTASSIUM SERUM 3.4 MEQ/L (3.5-5.1); SODIUM LEVEL 139 MEQ/L (136-145)
== END ==
LOC: SKLAB4 10:01
PROVIDERS: ATTEND Family Medicine
DX: N19 Unspecified kidney failure (principal)

== ENCOUNTER → 2018-08-21 | Outpatient (REF) | payer MEDICARE, MEDICAID ==
[2018-08-21 08:50] LABS: BLOOD UREA NITROGEN 15 MG/DL (7-18); CALCIUM LEVEL 7.7 MG/DL (8.8-10.2); CARBON DIOXIDE LEVEL 27 MEQ/L (21-32); CHLORIDE LEVEL 108 MEQ/L (98-107); CREATININE FOR GFR 1.14 MG/DL (0.70-1.30); GLOMERULAR FILTRATION RATE > 60.0 (>35); GLUCOSE, FASTING 97 MG/DL (70-100); POTASSIUM SERUM 4.6 MEQ/L (3.5-5.1); SODIUM LEVEL 142 MEQ/L (136-145)
== END ==
LOC: SKLAB4 09:58
PROVIDERS: ATTEND Family Medicine
DX: N18.9 Chronic kidney disease, unspecified (principal)

== ENCOUNTER → 2018-08-25 | Outpatient (REF) | payer MEDICARE, MEDICAID ==
[2018-08-25 08:41] LABS: BLOOD UREA NITROGEN 14 MG/DL (7-18); CARBON DIOXIDE LEVEL 26 MEQ/L (21-32); CHLORIDE LEVEL 107 MEQ/L (98-107); CREATININE FOR GFR 1.15 MG/DL (0.70-1.30); GLOMERULAR FILTRATION RATE > 60.0 (>35); GLUCOSE, FASTING 119 MG/DL (70-100); POTASSIUM SERUM 4.4 MEQ/L (3.5-5.1); SODIUM LEVEL 141 MEQ/L (136-145)
== END ==
LOC: SKLAB4 11:39
PROVIDERS: ATTEND Family Medicine
DX: N19 Unspecified kidney failure (principal)

== ENCOUNTER → 2018-08-28 | Outpatient (REF) | payer MEDICARE, MEDICAID ==
[2018-08-28 08:18] LABS: BLOOD UREA NITROGEN 15 MG/DL (7-18); CALCIUM LEVEL 7.8 MG/DL (8.8-10.2); CARBON DIOXIDE LEVEL 29 MEQ/L (21-32); CHLORIDE LEVEL 107 MEQ/L (98-107); CREATININE FOR GFR 1.04 MG/DL (0.70-1.30); GLOMERULAR FILTRATION RATE > 60.0 (>35); GLUCOSE, FASTING 93 MG/DL (70-100); POTASSIUM SERUM 4.6 MEQ/L (3.5-5.1); SODIUM LEVEL 142 MEQ/L (136-145)
== END ==
LOC: SKLAB4 10:58
PROVIDERS: ATTEND Family Medicine
DX: N19 Unspecified kidney failure (principal)

== ENCOUNTER → 2018-09-04 | Outpatient (REF) | payer MEDICARE, MEDICAID ==
[2018-09-04 07:45] LABS: BLOOD UREA NITROGEN 18 MG/DL (7-18); CALCIUM LEVEL 7.5 MG/DL (8.8-10.2); CARBON DIOXIDE LEVEL 30 MEQ/L (21-32); CHLORIDE LEVEL 105 MEQ/L (98-107); CREATININE FOR GFR 1.08 MG/DL (0.70-1.30); GLOMERULAR FILTRATION RATE > 60.0 (>35); GLUCOSE, FASTING 95 MG/DL (70-100); POTASSIUM SERUM 3.9 MEQ/L (3.5-5.1); SODIUM LEVEL 142 MEQ/L (136-145)
== END ==
LOC: SKLAB5 08:45
PROVIDERS: ATTEND Family Medicine
DX: N19 Unspecified kidney failure (principal)